=== PATIENT | male | born 2000 | race Caucasian/White ===

== ENCOUNTER 2020-08-06 10:44 | Emergency (ER) | payer MEDICAID, SELFPAY ==
[2020-08-06 11:03] VITALS: BP 104/57; PULSE 67; RESP 14; TEMP 36.7; O2SAT 98
[2020-08-06] MEDS: Lidocaine HCl 1 % MPF 5 ML VIAL SUBCUT ×2 (11:38→11:39)
--- NOTE | 2020-08-06 11:51 | ED.SKABFB ---
HPI - Skin/Abscess/Foreign Bdy General Chief complaint: Ear Problems Stated complaint: fb in ear lobe Time Seen by Provider: 08/06/20 11:24 History of Present Illness HPI narrative: patient complains of of part of an earring that stuck in the earlobe of his left ear and is hurting a little it has been stuck there for several days and the pain is mild, no prior tracing Related Data Allergies Allergy/AdvReac Type Severity Reaction Status Date / Time No Known Allergies Allergy Unverified 05/18/20 16:56 [No Known Allergies*] Review of Systems Review of Systems: no fever no chills no redness no swelling, no other skin rash, no discharge from the area [facility] Past Medical History Attestation statement: The following information was validated with the patient. [facility] Narrative: patient confirms he is up-to-date on tetanus immunization Source: nursing notes reviewed Medical History (Updated 08/06/20 @ 12:07 by GHAZALA Flores) Peptic ulcer Social History Social History Advance Directives: No Advance Directives Information Provided: No Physical Exam Vital Signs: Vital Signs: Last Vital Signs Temp 98.0 F 08/06/20 11:03 Pulse 67 08/06/20 11:03 Resp 14 08/06/20 11:03 BP 104/57 L 08/06/20 11:03 Pulse Ox 98 08/06/20 11:03 Body Mass Index 20.0 patient is A&O x3, comfortable no acute distress the exam the left ear has a palpable foreign body consistent with the hearing piece in the earlobe, there is no surrounding erythema not red not warm not fluctuant no discharge from wound Right ear lobe had no palpable foreign body was not red or warm and the ear canal was normal as was the tympanic membranes Neck is supple Respiratory no distress Extremities for range of motion x4 Skin no rash Course Course Course Narrative: Procedure note the left ear is scrubbed with Betadine Anesthesia is 4 cc of 1% lidocaine without epi Of 0.5 cm incision is made in the back of the earlobe If the piece of the earring was removed with a forceps To 5.0 nylon sutures were placed, bleeding was controlled Discharge Plan Discharge Clinical Impression: Foreign body (FB) in soft tissue Patient Disposition: Home, Self-Care Additional Instructions: the piece of earring was removed, no sign of any infection now Two stitches were placed and need to be removed in 5-7 days so follow with primary care doctor for suture removal or return to the ER in 5-7 days Return any time for redness swelling any sign of infection Stand Alone Forms: Work/School Release Interventions: ED Discharge Assessment Last Done: 08/06/20 12:32 Discharge Date/Time: 08/06/20 12:33
== END 2020-08-06 12:33 | disposition home or self-care (01) ==
PROVIDERS: Emergency Provider Internal Medicine
DX: T16.2XXA Foreign body in left ear, initial encounter (principal); H92.02 Otalgia, left ear; Y28.9XXA Contact with unspecified sharp object, undetermined intent, initial encounter; Y93.9 Activity, unspecified; Y92.9 Unspecified place or not applicable; Y99.9 Unspecified external cause status
CPT/HCPCS: 69200; 99283; 99284

== ENCOUNTER 2020-08-19 13:47 | Emergency (ER) | payer MEDICAID, SELFPAY ==
[2020-08-19 14:03] VITALS: BP 103/56; PULSE 70; RESP 16; TEMP 36.7; O2SAT 99; BMI 19.8
--- NOTE | 2020-08-19 14:22 | ED.SKABFB ---
HPI - Skin/Abscess/Foreign Bdy General Chief complaint: Skin/Abscess/Foreign Body Stated complaint: suture removal Time Seen by Provider: 08/19/20 14:21 Source: patient Mode of arrival: ambulatory Limitations: no limitations History of Present Illness HPI narrative: States here about 7 days ago for left ear laceration after his hearing got stuck and was repaired with 2 stitches. States no complaints here to have stitches removed as instructed. Treatments prior to arrival: none Related Data Allergies Allergy/AdvReac Type Severity Reaction Status Date / Time No Known Allergies Allergy Unverified 05/18/20 16:56 [No Known Allergies*] Review of Systems Review of Systems: Constitutional: No Weight loss, No Fever, No Chills, No Night Sweats, No Fatigue, No Malaise ENT/Mouth: No Hearing loss, No Ear Pain, No Nasal Congestion, No Sinus Pain, No Hoarseness, No sore throat, No Rhinorrhea, No Swallowing Difficulty Eyes: No Eye Pain, No Swelling, No Redness, No Foreign Body, No Discharge, No Vision Changes Cardiovascular: No Chest Pain, No SOB, No Dyspnea on Exertion Respiratory: No Cough, No Sputum Musculoskeletal: No joint pain, No Myalgias, No Joint Swelling Skin: No Skin Lesions, No rash Neuro: No Weakness, No Numbness, No Paresthesias Psych: No Social Issues Heme/Lymph: No Bruising, No Bleeding,No Lymphadenopathy Endocrine: No Polyuria, No Polydipsia, No Temperature Intolerance Yes all other systems are reviewed and are negative [facility] Past Medical History Medical History (Updated 08/19/20 @ 14:25 by Reji Romero NP) Peptic ulcer Social History Social History Advance Directives: No Advance Directives Information Provided: Yes Physical Exam Vital Signs: Vital Signs: Last Vital Signs Temp 98.0 F 08/19/20 14:03 Pulse 70 08/19/20 14:03 Resp 16 08/19/20 14:03 BP 103/56 L 08/19/20 14:03 Pulse Ox 99 08/19/20 14:03 Body Mass Index 19.8 Reviewed Const: General: cooperative and healthy appearing; No acute distress or intoxicated appearing Nutritional Appearance: average body habitus Orientation/consciousness: patient oriented x3 HENMT: Head: Yes normal to inspection Ears: hearing grossly normal bilaterally and other (Left posterior ear lobe there is 2 stitches intact. No erythema, swelling) Neck: Neck: Yes normal visual inspection and No tender Thyroid: Thyroid normal Chest: Chest palpation & inspection: normal inspection of the chest Resp: Effort & Inspection: normal respiratory effort Cardio: Jugular venous distension: no JVD GI: Inspection: Yes normal to inspection Percussion: Yes normal to percussion Auscultation: normal bowel sounds Neuro: General: patient oriented x3 Extrem: General: Yes normal to inspection Procedures Procedure Narrative Procedure Narrative: Left posterior lobe there are 2 stitches intact. Site closed, no dehiscence. No induration, erythema, swelling. Two stitches removed after prep with alcohol wipe. Removed fully intact. No erythema, swelling, discharge or to palpation. Discharge Plan Discharge Clinical Impression: Encounter for removal of sutures Patient Disposition: Home, Self-Care Instructions: Stitches Removal (ED) Additional Instructions: Today had 2 stitches from the posterior left ear lobe removed. Site appears to be well-healed Keep site clean and dry Return if any concerns or worsening symptoms Otherwise follow-up as planned Thank you Referrals: [facility] [Primary Care Provider] - 1 week (As needed)
== END 2020-08-19 14:35 | disposition home or self-care (01) ==
PROVIDERS: Emergency Provider Emergency Medicine
DX: Z48.02 Encounter for removal of sutures (principal)
CPT/HCPCS: 99283

== ENCOUNTER 2020-12-19 03:37 | Emergency (ER) | payer MEDICAID, SELFPAY ==
[2020-12-19 04:58] VITALS: BP 97/52; PULSE 76; RESP 16; TEMP 36.6; O2SAT 100; BMI 22.4
--- NOTE | 2020-12-19 05:10 | ED_ITS ---
HPI - Abdominal Pain General Chief Complaint: Abdominal Pain Stated Complaint: Abd pain Time Seen by Provider: 12/19/20 05:10 Source: patient Mode of arrival: ambulatory Limitations: no limitations History of Present Illness HPI narrative: Patient history of chronic gastritis used to be on ranitidine not taking anymore had endoscopy 2 years ago which showed peptic ulcer without any bleeding patient does smoke drinks alcohol and smokes marijuana feels better after taking hot shower complaining of diffuse abdominal pain with nausea slight loose bowels for last few days. Pain is mostly in epigastric area feel bloating this all over the abdomen no melena , no blood in the stool pain does get worse after eating food patient not on any NSAID MD elicited complaint: abdominal pain Pertinent past history: gastritis Related Data Previous Rx's Medication Instructions Recorded pantoprazole [Protonix] 40 mg PO DAILY #30 tab 12/19/20 sucralfate 1 g PO TID #90 tab 12/19/20 Allergies Allergy/AdvReac Type Severity Reaction Status Date / Time No Known Allergies Allergy Unverified 05/18/20 16:56 [No Known Allergies*] Review of Systems Review of Systems Constitutional : No Weight loss, No Fever, No Chills ENT/Mouth : No sore throat, No Rhinorrhea Eyes: No Eye Pain, No Swelling Cardiovascular : No Chest Pain, no palpitations Respiratory : No Cough, No Sputum, no shortness of breath Gastrointestinal : no Nausea, No Vomiting, + Diarrhea, + abdominal Pain, no black stools Genitourinary : No Dysuria, No Urinary Frequency Musculoskeletal : No joint pain, No Myalgias, No Joint Swelling Skin : No Skin Lesions, No rash Neuro : No Weakness, No Numbness, No Dizziness, No Headache Psych : No Anxiety/Panic, No Depression Heme/Lymph: No Bruising, No Lymphadenopathy Endocrine : No Polyuria, No Polydipsia All other systems reviewed and are negative Physical Exam Vital Signs: Vital Signs: Last Vital Signs Temp 97.9 F 12/19/20 04:58 Pulse 76 12/19/20 04:58 Resp 16 12/19/20 04:58 BP 97/52 L 12/19/20 04:58 Pulse Ox 100 12/19/20 04:58 Body Mass Index 22.4 Appearance: Alert. Oriented X3. No acute distress. Eyes: Pupils equal, round and reactive to light. ENT: Pharynx normal. Neck: Normal inspection. Neck supple. CVS: Normal heart rate and rhythm. Pulses normal. Respiratory: No respiratory distress. Breath sounds normal. Abdomen: Soft , mild epigastric tenderness no rebound tenderness or guarding. Bowel sounds are present, no mass palpable, no CVA tenderness Skin: Skin warm and dry. Normal skin color. Normal skin turgor. Extremities: No lower extremity edema. Neuro: Oriented X 3. No motor deficit. No sensory deficit. MDM - Abdominal Pain MDM Narrative Medical decision making narrative: Patient with chronic gastritis cannabis abuse comes with epigastric pain. 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
[2020-12-19] MEDS: Omeprazole 40 MG CAPSULE.DR PO (05:55)
[2020-12-19] MEDS: Magnesium Hydrox/Alum Hydrox 30 ML ORAL.SUSP PO (05:55)
== END 2020-12-19 06:02 | disposition home or self-care (01) ==
PROVIDERS: Emergency Provider Internal Medicine
DX: K29.50 Unspecified chronic gastritis without bleeding (principal)
CPT/HCPCS: 99283

== ENCOUNTER 2021-02-28 09:50 | Emergency (ER) | payer MEDICAID, SELFPAY ==
--- NOTE | ~2021-02-28 | CT_ITS ---
EXAMINATION: CT ABDOMEN AND PELVIS WITHOUT CONTRAST CLINICAL INFORMATION: Low back pain. Hematuria. COMPARISON: Previous renal ultrasound April [address] of the abdomen and pelvis September 2019 TECHNIQUE: Multidetector volumetric imaging was performed from the superior aspect of the liver through the pubic symphysis. Sagittal and coronal reformatted images were obtained on the technologist's workstation. This CT examination was performed using dose optimization techniques as appropriate, variously including the following: *Automated exposure control *Adjustment of mA and/or kV according to patient size (this includes techniques or standardized protocols for targeted exams where dose is matched to indication/reason for exam; i.e. extremities or head) *Use of iterative reconstruction technique DLP: 382 mGy-cm FINDINGS: LUNG BASES: The visualized lung bases are unremarkable. LIVER, GALLBLADDER, AND BILIARY TREE: The liver is normal in size, shape, and attenuation. No focal hepatic lesion or biliary ductal dilatation is present. The gallbladder is unremarkable with no evidence of radiopaque gallstones, gallbladder wall thickening, or obvious pericholecystic inflammatory changes. PANCREAS: Unremarkable. SPLEEN: Unremarkable. ADRENAL GLANDS: Unremarkable. KIDNEYS AND URETERS: There is a small 2 mm stone in the lower pole right kidney. The kidneys are otherwise unremarkable. No ureteral dilatation or ureteral stone is seen. BLADDER: Unremarkable. GASTROINTESTINAL TRACT: There is diverticulosis of the colon. The small and large bowel are otherwise unremarkable. The appendix is unremarkable. ABDOMINAL WALL: No significant hernia is appreciated. LYMPH NODES: Normal. VASCULAR: Unremarkable. PELVIC VISCERA: Unremarkable. OSSEOUS STRUCTURES: Unremarkable. CT/CT abdomen pelvis wo con IMPRESSION: Small right renal stone. No hydronephrosis. Diverticulosis of the colon. No evidence of diverticulitis.
[2021-02-28 11:03] VITALS: BP 91/57; PULSE 54; RESP 16; TEMP 36.6; O2SAT 98; BMI 19.6
[2021-02-28 11:17] LABS: Appearance Urine CLOUDY; Color Urine BROWN; Glucose Urine UA NEG (NEG); Leukocyte Esterase Urine NEG (NEG); Nitrite Urine NEG (NEG); Specific Gravity - Urine 1.025 (1.005-1.025); Urine Blood 3+ (NEG); Urine Ketones NEG (NEG); Urine Protein 2+ MG/DL (NEG-TRACE)
[2021-02-28 11:21] LABS: Mucus Urine TRACE /LPF; RBC Urine TNTC /HPF (0); Squamous Epithelial Cell Urine TRACE /LPF; WBC Urine 0 /HPF (0-4)
[2021-02-28 11:23] LABS: Calcium Oxalate Crystals Urine 1+ /LPF
--- NOTE | 2021-02-28 12:20 | ED_ITS ---
HPI - Male Genitourinary General Chief complaint: Urogenital-Male Stated complaint: blood in urine Time Seen by Provider: 02/28/21 12:05 Source: patient Mode of arrival: ambulatory Limitations: no limitations History of Present Illness HPI Narrative: 20 y/o male with history of peptic ulcer disease who presents to the ER with acute onset of gross hematuria that started this morning. He reports increased urgency and frequency but denies dsyuria, fever, chills. He had some upset stomach last night and nausea but denies abdominal pain or vomiting. He has never had hematuria before. He denies trauma, no testicular or penile pain. Denies concern for STI. He has had intermittent right lower back pain when he wakes up in the morning but no flank pain. MD Complaint: other (hematuria) Onset (ago): hour(s) Duration: intermittent Severity: moderate Associated symptoms: Reports blood in urine Related Data Sexually active: No Previous Rx's Medication Instructions Recorded pantoprazole [Protonix] 40 mg PO DAILY #30 tab 12/19/20 sucralfate 1 g PO TID #90 tab 12/19/20 nitrofurantoin monohyd/m-cryst 100 mg PO Q12H 7 Days #14 cap 02/28/21 [Macrobid] Allergies Allergy/AdvReac Type Severity Reaction Status Date / Time No Known Allergies Allergy Unverified 05/18/20 16:56 [No Known Allergies*] Review of Systems Review of Systems: Constitutional: No Fever, No Chills ENT/Mouth: No sore throat, No Rhinorrhea, No Swallowing Difficulty Eyes: No Eye Pain, No Swelling, No Redness Cardiovascular: No Chest Pain, No SOB, No Orthopnea, No Edema Respiratory: No Cough, No Sputum, No Wheezing, No dyspnea Gastrointestinal: No Nausea, No Vomiting, No Diarrhea, No abdominal Pain, No Hematochezia, No Melena Genitourinary: No Dysuria, + Urinary Frequency, + Hematuria Musculoskeletal: No joint pain, No Myalgias Skin: No Skin Lesions, No rash Neuro: No Weakness, No Numbness, No Dizziness, No Headache Psych: No Anxiety/Panic, No Depression Heme/Lymph: No Bruising, No Lymphadenopathy Endocrine: No Polyuria, No Polydipsia PMFSH Past Medical History Attestation statement: The following information was validated with the patient. Medical History Peptic ulcer Social History Social History Advance Directives: Yes Advance Directives Information Provided: Yes Advance Directives on File: No Physical Exam Vital Signs: Vital Signs: Last Vital Signs Temp 98 F 02/28/21 11:03 Pulse 63 02/28/21 15:53 Resp 16 02/28/21 15:53 BP 105/53 L 02/28/21 15:53 Pulse Ox 98 02/28/21 11:03 Body Mass Index 19.6 Appearance: Alert. Oriented X3. No acute distress. Eyes: Pupils equal, round and reactive to light. ENT: Pharynx normal. Neck: Normal inspection. Neck supple. CVS: Normal heart rate and rhythm. Pulses normal. Respiratory: No respiratory distress. Breath sounds normal. Abdomen: Soft and nontender. +BS x4. : normal appearing genitalia, no lesions, no scrotal tenderness Skin: Skin warm and dry. Normal skin color. Normal skin turgor. No rashes. Extremities: No lower extremity edema. Neuro: Oriented X 3. No motor deficit. No sensory deficit. Course Course Course Narrative: 20 y/o male presenting with acute onset of hematuria today with recent lower back pain that improves with urination. No N/V/D or fevers. Will get UA, labs and CT scan for further evaluation. Reevaluation(s) Reevaluation #1: UA with blood and protein, no LE or gross infection. Normal renal function. He was given 2 L IVF with improvement in the hematuria, now clearing. No clots. Will treat for acute cystitis and have him f/u with Urology for further workup and management. Patient agrees with plan. Stable for d/c. MDM - Male Genitourinary Lab Data Result diagrams: 02/28/21 14:17 02/28/21 14:17 Labs: Lab Results 02/28/21 02/28/21 02/28/21 Range/Units 11:01 12:17 14:17 WBC 5.6 (4.8-10.8) X10*3/uL RBC 5.16 (4.60-5.80) X10*6/uL Hgb 16.3 (14.0-18.0) g/dl Hct 44.8 (42-52) % MCV 86.8 (80-98) fL MCH 31.6 (27.0-33.0) pg MCHC 36.4 H (31.0-36.0) g/dl RDW 12.2 (11.0-16.0) % Plt Count 250 (160-400) X10*3/uL MPV 9.4 (9.4-12.4) fL Immature Gran % (Auto) 0.2 (0.0-0.4) % Neut % (Auto) 52.2 (45-73) % Lymph % (Auto) 37.9 (20-40) % [place] % (Auto) 7.9 (2-11) % Eos % (Auto) 1.3 (0-4) % Baso % (Auto) 0.5 (0-2) % Lymph # (Auto) 2.1 (1.2-4.9) X10*3/uL [place] # (Auto) 0.4 (0.1-1.2) X10*3/uL Eos # (Auto) 0.1 (0.0-0.4) X10*3/uL Baso # (Auto) 0.0 (0.0-0.2) X10*3/uL Abs Immat Gran (auto) 0.01 (0.00-0.03) X10*3/uL Absolute Neuts (auto) 2.9 (2.0-8.3) X10*3/uL Absolute Nucleated RBC 0.000 (0.0-0.012) X10*3/uL Nucleated RBC % (auto) 0.0 (0.0-0.2) /100WBC Sodium (135-145) mmol/L Potassium (3.3-5.1) mmol/L Chloride (96-108) mmol/L Carbon Dioxide (22-29) mmol/L Anion Gap (12-20) BUN (9-16) mg/dL Creatinine (0.5-1.4) mg/dL Estim Creat Clear Calc Estimated GFR Random Glucose (60-115) mg/dL Calcium (8.4-10.2) mg/dL Urine Color BROWN BROWN Urine Appearance CLOUDY CLOUDY Urine pH 6.0 7.0 (5.0-8.0) Ur Specific [place] 1.025 1.025 (1.005-1.025) Urine Protein 2+ H 2+ H (NEG-TRACE) MG/DL Urine Glucose (UA) NEG NEG (NEG) MG/DL Urine Ketones NEG 5 (NEG) MG/DL Urine Blood 3+ H 3+ H (NEG) Urine Nitrite NEG NEG (NEG) Ur Leukocyte Esterase NEG NEG (NEG) Urine RBC TNTC H TNTC H (0) /HPF Urine WBC 0 0-2 (0-4) /HPF Ur Squamous Epith Cells TRACE NONE /LPF Calcium Oxalate Crystal 1+ /LPF Urine Bacteria NONE NONE /LPF Urine Mucus TRACE 2+ /LPF 02/28/21 Range/Units 14:17 WBC (4.8-10.8) X10*3/uL RBC (4.60-5.80) X10*6/uL Hgb (14.0-18.0) g/dl Hct (42-52) % MCV (80-98) fL MCH (27.0-33.0) pg MCHC (31.0-36.0) g/dl RDW (11.0-16.0) % Plt Count (160-400) X10*3/uL MPV (9.4-12.4) fL Immature Gran % (Auto) (0.0-0.4) % Neut % (Auto) (45-73) % Lymph % (Auto) (20-40) % [place] % (Auto) (2-11) % Eos % (Auto) (0-4) % Baso % (Auto) (0-2) % Lymph # (Auto) (1.2-4.9) X10*3/uL [place] # (Auto) (0.1-1.2) X10*3/uL Eos # (Auto) (0.0-0.4) X10*3/uL Baso # (Auto) (0.0-0.2) X10*3/uL Abs Immat Gran (auto) (0.00-0.03) X10*3/uL Absolute Neuts (auto) (2.0-8.3) X10*3/uL Absolute Nucleated RBC (0.0-0.012) X10*3/uL Nucleated RBC % (auto) (0.0-0.2) /100WBC Sodium 141 (135-145) mmol/L Potassium 4.3 (3.3-5.1) mmol/L Chloride 108 (96-108) mmol/L Carbon Dioxide 24 (22-29) mmol/L Anion Gap 13 (12-20) BUN 10 (9-16) mg/dL Creatinine 0.79 (0.5-1.4) mg/dL Estim Creat Clear Calc 138.7 Estimated GFR > 60 Random Glucose 82 (60-115) mg/dL Calcium 9.7 (8.4-10.2) mg/dL Urine Color Urine Appearance Urine pH (5.0-8.0) Ur Specific [place] (1.005-1.025) Urine Protein (NEG-TRACE) MG/DL Urine Glucose (UA) (NEG) MG/DL Urine Ketones (NEG) MG/DL Urine Blood (NEG) Urine Nitrite (NEG) Ur Leukocyte Esterase (NEG) Urine RBC (0) /HPF Urine WBC (0-4) /HPF Ur Squamous Epith Cells /LPF Calcium Oxalate Crystal /LPF Urine Bacteria /LPF Urine Mucus /LPF Discharge Plan Discharge Clinical Impression: Cystitis Patient Disposition: Home, Self-Care Instructions: Hematuria (ED), Interstitial Cystitis (ED) Additional Instructions: Take the prescribed anitbiotic as directed. Increase your oral hydration, drink plenty of water Your lab workup was normal. Your CT scan showed 2 small kidney stones which are unlikely to be causing your bloody urine Recommend following up with Urology - name and number listed below If you develop new or worsening symptoms call 911 or come back to the ER for further evaluation. Prescriptions: New nitrofurantoin monohyd/m-cryst [Macrobid] 100 mg capsule 100 mg PO Q12H 7 Days Qty: 14 RF: 0 No Action pantoprazole [Protonix] 40 mg tablet,delayed release (DR/EC) 40 mg PO DAILY Qty: 30 RF: 0 sucralfate 1 gram tablet 1 g PO TID Qty: 90 RF: 0 Referrals: Brett Morrison MD [Physician] - 1 week (hematuria) Interventions: ED Discharge Assessment Last Done: 02/28/21 17:07 Discharge Date/Time: 02/28/21 17:08
[2021-02-28 12:34] LABS: Glucose Urine UA NEG (NEG); Leukocyte Esterase Urine NEG (NEG); Nitrite Urine NEG (NEG); Specific Gravity - Urine 1.025 (1.005-1.025); Urine Blood 3+ (NEG); Urine Ketones 5 MG/DL (NEG); Urine Protein 2+ MG/DL (NEG-TRACE)
[2021-02-28 12:35] LABS: Appearance Urine CLOUDY; Color Urine BROWN
[2021-02-28 12:42] LABS: Mucus Urine 2+ /LPF; RBC Urine TNTC /HPF (0); WBC Urine 0-2 /HPF (0-4)
[2021-02-28] MEDS: 0.9 % Sodium Chloride 1,000 ML 999 ML IVCONT ×2 (14:18→15:47)
[2021-02-28 14:21] LABS: MANUAL DIFF FLAG NO
[2021-02-28 14:23] LABS: Basophils Percent Auto 0.5 % (0-2); Eosinophils Absolute Auto 0.1 X10*3/uL (0.0-0.4); Eosinophils Percent Auto 1.3 % (0-4); Hematocrit 44.8 % (42-52); Hemoglobin 16.3 g/dl (14.0-18.0); Imm Gran Abs Auto 0.01 X10*3/uL (0.00-0.03); Imm Gran Pct Auto 0.2 % (0.0-0.4); Lymphocytes Absolute Auto 2.1 X10*3/uL (1.2-4.9); Lymphocytes Percent Auto 37.9 % (20-40); Mean Corpuscular HGB Conc 36.4 g/dl (31.0-36.0); Mean Corpuscular Hemoglobin 31.6 pg (27.0-33.0); Mean Corpuscular Volume 86.8 fL (80-98); Mean Platelet Volume 9.4 fL (9.4-12.4); Monocytes Absolute Auto 0.4 X10*3/uL (0.1-1.2); Monocytes Percent Auto 7.9 % (2-11); Neutrophils Absolute Auto 2.9 X10*3/uL (2.0-8.3); Neutrophils Percent Auto 52.2 % (45-73); Platelet Count 250 X10*3/uL (160-400); Red Blood Count 5.16 X10*6/uL (4.60-5.80); Red Cell Distribution Width 12.2 % (11.0-16.0); White Blood Count 5.6 X10*3/uL (4.8-10.8)
[2021-02-28 15:00] LABS: Anion Gap 13 (12-20); Blood Urea Nitrogen 10 mg/dL (9-16); Calcium 9.7 mg/dL (8.4-10.2); Carbon Dioxide 24 mmol/L (22-29); Chloride 108 mmol/L (96-108); Creatinine Clr Calc Pharmacy 138.7; Estimated Glomerular Filt Rate > 60; Glucose Random 82 mg/dL (60-115); Potassium 4.3 mmol/L (3.3-5.1); Sodium 141 mmol/L (135-145)
[2021-02-28 15:53] VITALS: BP 105/53; PULSE 63; RESP 16
--- NOTE | 2021-02-28 17:06 | PC.NURSE ---
PT REPORTS HEMATURIA RESOLVING, URINE APPEARANCE IMPROVING. DENIES ANY PAIN AT THIS TIME.
== END 2021-02-28 17:08 | disposition home or self-care (01) ==
PROVIDERS: Physician Assistant; Emergency Provider Emergency Medicine
DX: N30.91 Cystitis, unspecified with hematuria (principal)
CPT/HCPCS: 36415; 74176; 80048; 81001; 85025; 96360; 96361; 99284

== ENCOUNTER 2021-06-23 12:19 | Emergency (ER) | payer MEDICAID, SELFPAY ==
[2021-06-23 12:21] VITALS: BP 126/79; PULSE 51; RESP 17; TEMP 36.6; O2SAT 100; BMI 19.6
--- NOTE | 2021-06-23 12:29 | ED_ITS ---
HPI - Abdominal Pain General Chief Complaint: Abdominal Pain Stated Complaint: abd pain Time Seen by Provider: 06/23/21 12:28 Source: patient Mode of arrival: ambulatory Limitations: no limitations History of Present Illness HPI narrative: 20 y/o male with history of PUD, history of hematuria in the past who presents to the ER with upper middle abdominal pain for the last 1 week. He reports the pain is making it hard for him to eat. He tried a bland diet but has not been working. The pain is worse after he eats anything. He has some nausea but has not vomited. He feels like he is not his normal self, he is very anxious and stressed. He is not taking any medications for his known peptic ulcer disease. His GI doctor is no longer in practice. He reports his last endoscopy was about 1 year ago. A couple of weeks ago he was taking ibuprofen for the abdominal pain but remembered shortly after that this made ulcers worse. He denies any bloody or black bowel movements. He denies any alcohol intake, and only minimal caffeine intake. He has no chest pain or shortness of breath. No fever or chills. MD elicited complaint: abdominal pain Pertinent past history: other (Peptic ulcer disease) Onset (ago): week(s) Pain Consistency: constant Location: epigastric Severity: moderate Quality: dull and burning Radiation: none Migration to: no migration Exacerbating factors: eating Relieving factors: nothing Context: history of similar episodes Associated symptoms: nausea and anorexia Related Data Previous Rx's Medication Instructions Recorded pantoprazole 40 mg tablet,delayed 40 mg PO DAILY #30 tab 12/19/20 release (Protonix) sucralfate 1 gram tablet 1 g PO TID #90 tab 12/19/20 nitrofurantoin 100 mg PO Q12H 7 Days #14 cap 02/28/21 monohydrate/macrocrystals 100 mg capsule (Macrobid) pantoprazole 40 mg tablet,delayed 40 mg PO DAILY #30 tab 06/23/21 release (Protonix) sucralfate 1 gram tablet (Carafate) 1 g PO BID #60 tab 06/23/21 Allergies Allergy/AdvReac Type Severity Reaction Status Date / Time No Known Allergies Allergy Verified 06/23/21 12:21 [No Known Allergies*] Review of Systems Review of Systems Constitutional: No Fever, No Chills ENT/Mouth: No sore throat, No Rhinorrhea, No Swallowing Difficulty Cardiovascular: No Chest Pain, No SOB Gastrointestinal: + Nausea, No Vomiting, No Diarrhea, + abdominal Pain, No Hematochezia, No Melena Genitourinary: No Dysuria, No Urinary Frequency, No Hematuria Musculoskeletal: No joint pain, No Myalgias Skin: No Skin Lesions, No rash Neuro: No Weakness, No Numbness, No Dizziness, + Headache Psych: + Anxiety/Panic, No Depression Heme/Lymph: No Bruising, No Lymphadenopathy Endocrine: No Polyuria, No Polydipsia Physical Exam Vital Signs: Vital Signs: Last Vital Signs Temp 97.9 F 06/23/21 12:21 Pulse 51 06/23/21 12:21 Resp 17 06/23/21 12:21 BP 126/79 06/23/21 12:21 Pulse Ox 100 06/23/21 12:21 Body Mass Index 19.6 Course Course Course Narrative: 20-year-old male with known peptic ulcer disease, confirmed by endoscopy about 1 year ago presents to the ER with epigastric abdominal pain, worse after eating. He has not been on any medications for his peptic ulcers. He reports his GI doctor is no longer in practice. He has had no nausea, vomiting, diarrhea. He has some epigastric tenderness on exam. He is anxious and stressed. Suspect his pain is due to her current peptic ulcer disease, however will check some lab workup to rule out biliary etiology or pancreatitis. Will give IV fluids and GI cocktail along with Protonix and re-evaluate. Reevaluation(s) Reevaluation #1: Lab workup showing only mild elevation in total and direct bilirubins, the rest of the LFTs are normal. Lipase is normal. He symptomatic lead feels improved after the GI cocktail. He is stable for discharge home with treatment of PUD, with Protonix and Carafate. Will give him referral for GI with Dr. Wilson. He was also encouraged follow-up with his primary care doctor for management of ongoing anxiety and stress. Patient's father also expressed concern about this and it could be contributing to his worsening ulcers. Stable for discharge home. MDM - Abdominal Pain Lab Data Result diagrams: 06/23/21 13:10 06/23/21 13:10 Labs: Lab Results 06/23/21 06/23/21 Range/Units 13:10 13:10 WBC 3.9 L (4.8-10.8) X10*3/uL RBC 4.99 (4.60-5.80) X10*6/uL Hgb 15.6 (14.0-18.0) g/dl Hct 43.4 (42-52) % MCV 87.0 (80-98) fL MCH 31.3 (27.0-33.0) pg MCHC 35.9 (31.0-36.0) g/dl RDW 12.5 (11.0-16.0) % Plt Count 241 (160-400) X10*3/uL MPV 10.2 (9.4-12.4) fL Immature Gran % (Auto) 0.3 (0.0-0.4) % Neut % (Auto) 53.8 (45-73) % Lymph % (Auto) 32.4 (20-40) % Marshall % (Auto) 11.1 H (2-11) % Eos % (Auto) 1.6 (0-4) % Baso % (Auto) 0.8 (0-2) % Lymph # (Auto) 1.3 (1.2-4.9) X10*3/uL Marshall # (Auto) 0.4 (0.1-1.2) X10*3/uL Eos # (Auto) 0.1 (0.0-0.4) X10*3/uL Baso # (Auto) 0.0 (0.0-0.2) X10*3/uL Abs Immat Gran (auto) 0.01 (0.00-0.03) X10*3/uL Absolute Neuts (auto) 2.1 (2.0-8.3) X10*3/uL Absolute Nucleated RBC 0.000 (0.0-0.012) X10*3/uL Nucleated RBC % (auto) 0.0 (0.0-0.2) /100WBC Sodium 138 (135-145) mmol/L Potassium 4.1 (3.3-5.1) mmol/L Chloride 106 (96-108) mmol/L Carbon Dioxide 23 (22-29) mmol/L Anion Gap 13 (12-20) BUN 13 (9-16) mg/dL Creatinine 0.86 (0.5-1.4) mg/dL Estim Creat Clear Calc 127.4 Estimated GFR > 60 Random Glucose 79 (60-115) mg/dL Calcium 9.6 (8.4-10.2) mg/dL Magnesium 2.2 (1.6-2.6) mg/dL Total Bilirubin 2.1 H (0.0-1.0) mg/dL Direct Bilirubin 0.7 H (0.0-0.5) mg/dL AST 14 (5-37) U/L ALT 9 (0-40) U/L Alkaline Phosphatase 63 (39-117) U/L Total Protein 7.2 (6.5-8.0) g/dL Albumin 4.7 (3.5-5.0) g/dL Lipase 9 (8-78) U/L Critical Care Time Critical Care Time Critical Care Time: No Discharge Plan Discharge Clinical Impression: Peptic ulcer disease Patient Disposition: Home, Self-Care Instructions: Peptic Ulcer (ED), Diet for Stomach Ulcers and Gastritis (ED) Additional Instructions: Your abdominal pain is most likely due to untreated peptic ulcer disease. Recommend taking the prescribed medications as directed. The pain will get better with time and with the medications. Follow-up with the GI doctor for further evaluation and possible repeat endoscopy. Follow the diet provided, avoid any spicy or acidic food. Avoid alcohol. Avoid any anti-inflammatory medications such as Aleve, Motrin, ibuprofen, Advil. Follow-up with your primary care provider as well. Recommend getting referrals for therapy for anxiety and stress. Prescriptions: New pantoprazole [Protonix] 40 mg tablet,delayed release (DR/EC) 40 mg PO DAILY Qty: 30 RF: 0 sucralfate [Carafate] 1 gram tablet 1 g PO BID Qty: 60 RF: 0 No Action pantoprazole [Protonix] 40 mg tablet,delayed release (DR/EC) 40 mg PO DAILY Qty: 30 RF: 0 sucralfate 1 gram tablet 1 g PO TID Qty: 90 RF: 0 nitrofurantoin monohyd/m-cryst [Macrobid] 100 mg capsule 100 mg PO Q12H 7 Days Qty: 14 RF: 0 Referrals: Piotr Wilson [Physician] - 1 week (PUD) Stand Alone Forms: Work/School Release [facility] Past Medical History Medical History Peptic ulcer Social History Social History Advance Directives: No
[2021-06-23 13:15] LABS: MANUAL DIFF FLAG NO
[2021-06-23] MEDS: Magnesium Hydrox/Alum Hydrox 30 ML ORAL.SUSP PO (13:19)
[2021-06-23] MEDS: Omeprazole 40 MG CAPSULE.DR PO (13:19)
[2021-06-23] MEDS: PHENobarb/Hyoscy/Atropine/Scop 10 ML ELIXIR PO (13:19)
[2021-06-23] MEDS: Lidocaine HCl Viscous 2 % 15 ML SOLUTION MUCOUS MEM (13:19)
[2021-06-23] MEDS: 0.9 % Sodium Chloride 1,000 ML 999 ML IVCONT (13:20)
[2021-06-23 13:22] LABS: Basophils Percent Auto 0.8 % (0-2); Eosinophils Absolute Auto 0.1 X10*3/uL (0.0-0.4); Eosinophils Percent Auto 1.6 % (0-4); Hematocrit 43.4 % (42-52); Hemoglobin 15.6 g/dl (14.0-18.0); Imm Gran Abs Auto 0.01 X10*3/uL (0.00-0.03); Imm Gran Pct Auto 0.3 % (0.0-0.4); Lymphocytes Absolute Auto 1.3 X10*3/uL (1.2-4.9); Lymphocytes Percent Auto 32.4 % (20-40); Mean Corpuscular HGB Conc 35.9 g/dl (31.0-36.0); Mean Corpuscular Hemoglobin 31.3 pg (27.0-33.0); Mean Platelet Volume 10.2 fL (9.4-12.4); Monocytes Absolute Auto 0.4 X10*3/uL (0.1-1.2); Monocytes Percent Auto 11.1 % (2-11); Neutrophils Absolute Auto 2.1 X10*3/uL (2.0-8.3); Neutrophils Percent Auto 53.8 % (45-73); Platelet Count 241 X10*3/uL (160-400); Red Blood Count 4.99 X10*6/uL (4.60-5.80); Red Cell Distribution Width 12.5 % (11.0-16.0); White Blood Count 3.9 X10*3/uL (4.8-10.8)
[2021-06-23 13:40] LABS: Alanine Aminotransferase 9 U/L (0-40); Albumin Level 4.7 g/dL (3.5-5.0); Alkaline Phosphatase 63 U/L (39-117); Anion Gap 13 (12-20); Aspartate Amino Transferase 14 U/L (5-37); Bilirubin Direct 0.7 mg/dL (0.0-0.5); Bilirubin Total 2.1 mg/dL (0.0-1.0); Blood Urea Nitrogen 13 mg/dL (9-16); Calcium 9.6 mg/dL (8.4-10.2); Carbon Dioxide 23 mmol/L (22-29); Chloride 106 mmol/L (96-108); Creatinine Clr Calc Pharmacy 127.4; Estimated Glomerular Filt Rate > 60; Glucose Random 79 mg/dL (60-115); Lipase 9 U/L (8-78); Magnesium 2.2 mg/dL (1.6-2.6); Potassium 4.1 mmol/L (3.3-5.1); Sodium 138 mmol/L (135-145); Total Protein 7.2 g/dL (6.5-8.0)
== END 2021-06-23 14:23 | disposition home or self-care (01) ==
PROVIDERS: Physician Assistant; Emergency Provider Emergency Medicine
DX: K27.9 Peptic ulcer, site unspecified, unspecified as acute or chronic, without hemorrhage or perforation (principal); R10.13 Epigastric pain; R11.2 Nausea with vomiting, unspecified; Z79.899 Other long term (current) drug therapy
CPT/HCPCS: 36415; 80048; 80076; 83690; 83735; 85025; 96360; 99283; 99284

== ENCOUNTER 2021-09-18 22:00 | Emergency (ER) | payer MEDICAID, SELFPAY ==
[2021-09-18 22:31] VITALS: BP 122/71; PULSE 66; RESP 16; TEMP 36.6; O2SAT 99; BMI 19.0
== END 2021-09-18 23:37 | disposition left against medical advice (07) ==
PROVIDERS: Emergency Provider Emergency Medicine
DX: U07.1 COVID-19 (principal); R07.89 Other chest pain
CPT/HCPCS: 99281; 99282

== ENCOUNTER 2021-11-20 12:25 | Emergency (ER) | payer MEDICAID, SELFPAY ==
--- NOTE | ~2021-11-20 | XR_ITS ---
EXAMINATION: XR CALCANEUS, LEFT CLINICAL INFORMATION: Trauma COMPARISON: Left foot x-ray from earlier the same day TECHNIQUE: Lateral and axial views of the left calcaneus were obtained. FINDINGS: The bones and soft tissues are normal. No fracture. Alignment is anatomic. Joint spaces are maintained. No enthesopathic spurs are evident at the calcaneus. XR/XR calcaneus LT min 2V IMPRESSION: Normal left calcaneus.
--- NOTE | ~2021-11-20 | XR_ITS ---
EXAMINATION: XR FOOT, LEFT CLINICAL INFORMATION: Injury heel with heavy object COMPARISON: None TECHNIQUE: AP, lateral, and oblique views of the left foot. FINDINGS: The bones and soft tissues are normal. No fracture. Alignment is anatomic. Joint spaces are maintained. XR/XR foot LT min 3V IMPRESSION: Normal left foot.
[2021-11-20 12:41] VITALS: BP 112/57; PULSE 58; RESP 19; TEMP 36.6; O2SAT 98; BMI 19.1
--- NOTE | 2021-11-20 15:03 | ED_ITS ---
HPI - Extremity Injury (Lower) General Chief Complaint: Extremity Injury, Lower Stated Complaint: Foot pain-work inj Time Seen by Provider: 11/20/21 13:38 Source: patient Mode of arrival: ambulatory History of Present Illness HPI Narrative: 21-year-old male no significant past medical history presenting to the ED c/o left heel injury/pain s/p 60+ pound cart running into heel at work in [employer] today. Reports associated numbness and pain with ambulation. Denies injury to the area, weakness, fever MD complaint: foot injury Related Data Previous Rx's Medication Instructions Recorded pantoprazole 40 mg tablet,delayed 40 mg PO DAILY #30 tab 12/19/20 release (Protonix) sucralfate 1 gram tablet 1 g PO TID #90 tab 12/19/20 nitrofurantoin 100 mg PO Q12H 7 Days #14 cap 02/28/21 monohydrate/macrocrystals 100 mg capsule (Macrobid) pantoprazole 40 mg tablet,delayed 40 mg PO DAILY #30 tab 06/23/21 release (Protonix) sucralfate 1 gram tablet (Carafate) 1 g PO BID #60 tab 06/23/21 Allergies Allergy/AdvReac Type Severity Reaction Status Date / Time No Known Allergies Allergy Verified 06/23/21 12:21 [No Known Allergies*] Review of Systems Review of Systems: Constitutional: No Fever, No Chills ENT/Mouth: No Ear Pain, No Nasal Congestion, No sore throat, No Rhinorrhea, No Swallowing Difficulty Cardiovascular: No Chest Pain, No SOB Respiratory: No Cough, No Sputum Gastrointestinal: No Nausea, No Vomiting, No Diarrhea, No Constipation, No Abdominal pain Genitourinary: No Dysuria, No Flank Pain Musculoskeletal: + joint pain, No Myalgias, No Joint Swelling Skin: No Skin Lesions, No rash Neuro: No Weakness, + Numbness, + Paresthesias Yes all other systems are reviewed and are negative PMFSH Past Medical History Attestation statement: The following information was validated with the patient. Medical History Peptic ulcer Social History Social History Advance Directives: No Advance Directives Information Provided: No Physical Exam Vital Signs: Vital Signs: Last Vital Signs Temp 98 F 11/20/21 12:41 Pulse 58 11/20/21 12:41 Resp 19 11/20/21 12:41 BP 112/57 L 11/20/21 12:41 Pulse Ox 98 11/20/21 12:41 BMI result Body Mass Index 19.1 Const: General: cooperative, healthy appearing and no acute distress Orientation/consciousness: patient oriented x3 Limitations: no limitations HEENT: Head: Yes normal to inspection Ears: hearing grossly normal bilaterally General nose exam: Normal external nose present Face and sinus: Yes normal facial exam Eyes: General: appearance normal, both eyes and all related structures EOM: EOMs intact bilaterally Neck: Neck: Yes normal visual inspection and Yes no meningeal signs Resp: Effort & Inspection: normal respiratory effort and no respiratory distress Cardio: Rate: regular rate Peripheral pulses: dorsalis pedis present Skin: Rashes: no rashes Wounds: no wounds Neuro: Other: Left heel with noted tenderness to palpation, no deformity, no erythema/ecchymosis. Neurovascularly intact. No crepitus. Full range of motion intact to ankle and toes. Negative Adamson test Sensation intact to light touch however reportedly feels different to heel General: patient oriented x3, gait normal, tone normal, moves all extremities and no meningeal signs Extrem: General: Yes normal to inspection Course Course Course Narrative: XR foot LT min 3V IMPRESSION: Normal left foot. XR calcaneus LT min 2V IMPRESSION: Normal left calcaneus. >> Neri wrap applied for comfort/stability. Results discussed with patient including worrisome signs and symptoms and strict return precautions MDM - Extremity Injury (Lower) MDM Narrative Medical decision making narrative: 21-year-old male no significant past medical history presenting to the ED c/o left heel injury/pain s/p 60+ pound cart running into heel at work in [employer] today. On exam vital signs stable, NAD/nontoxic-appearing, physical exam as above. Concern for contusion vs fracture vs sprain. No evidence of Achilles tendon rupture Plan: X-rays Medical Records Attestation: I reviewed the patient's medical records. Lab Data Attestation: I reviewed the patient's lab results. Discharge Plan Discharge Clinical Impression: Heel pain Patient Disposition: Home, Self-Care Instructions: Arthralgia (ED) Additional Instructions: Your x-rays are unremarkable. Wear Neri wrap at home as needed for comfort and stability. Ice and elevate her foot. Take ibuprofen and Tylenol If pain becomes unbearable please follow-up with Podiatry Orthopedics as needed Follow-up with your doctor Prescriptions: No Action pantoprazole [Protonix] 40 mg tablet,delayed release (DR/EC) 40 mg PO DAILY Qty: 30 0RF sucralfate 1 gram tablet 1 g PO TID Qty: 90 0RF nitrofurantoin monohyd/m-cryst [Macrobid] 100 mg capsule 100 mg PO Q12H 7 Days Qty: 14 0RF Rx Instructions: must administer with a meal/food pantoprazole [Protonix] 40 mg tablet,delayed release (DR/EC) 40 mg PO DAILY Qty: 30 0RF sucralfate [Carafate] 1 gram tablet 1 g PO BID Qty: 60 0RF Referrals: [facility] [Primary Care Provider] - 2 days Gretchen Mcdowell PA-C [Physician [employer]ished [employer]] - 2 days Dane Nieves MD [Physician] - 1 week Stand Alone Forms: Work/School Release
== END 2021-11-20 15:22 | disposition home or self-care (01) ==
PROVIDERS: Emergency Provider Emergency Medicine Emergency Medical Services
DX: Z04.2 Encounter for examination and observation following work accident (principal); M79.672 Pain in left foot
CPT/HCPCS: 73630; 73650; 99283

== ENCOUNTER 2022-03-27 21:20 | Emergency (ER) | payer MEDICAID, SELFPAY ==
[2022-03-27 22:44] VITALS: BP 101/59; PULSE 53; RESP 18; TEMP 36.3; O2SAT 97; BMI 20.9
== END 2022-03-28 03:41 | disposition left against medical advice (07) ==
PROVIDERS: Emergency Provider Emergency Medicine
DX: Z04.2 Encounter for examination and observation following work accident (principal); H57.11 Ocular pain, right eye
CPT/HCPCS: 99281

== ENCOUNTER 2022-09-16 19:16 | Emergency (ER) | payer MEDICAID, SELFPAY ==
[2022-09-16 19:19] VITALS: BP 106/64; PULSE 73; RESP 16; TEMP 36.4; O2SAT 97; BMI 19.8
--- NOTE | 2022-09-16 19:23 | ED_ITS ---
HPI - General Adult General Chief complaint: General Medical <GHAZALA Jordan - Last Filed: 09/17/22 11:33> Stated complaint: sore throat <GHAZALA Jordan - Last Filed: 09/17/22 11:33> Time Seen by Provider: 09/16/22 20:38 <GHAZALA Jordan - Last Filed: 09/17/22 11:33> Source: patient <Lita Hope CNP - Last Filed: 09/16/22 21:26> Mode of arrival: ambulatory <Lita Hope CNP - Last Filed: 09/16/22 21:26> Limitations: no limitations <Lita Hope CNP - Last Filed: 09/16/22 21:26> History of Present Illness HPI narrative: Patient is a 22-year-old male who presents to the emergency department for evaluation of sore throat. Onset of symptoms was 4 days ago. Denies additional URI symptoms. He does state that his coworkers have been ill with similar symptoms. Denies fevers, chills, drooling, difficulty swallowing, cough, nasal congestion, chest pain, shortness of breath. <Lita Hope CNP - Last Filed: 09/16/22 21:26> Related Data Home medications: Previous Rx's Medication Instructions Recorded pantoprazole 40 mg tablet,delayed 40 mg PO DAILY #30 tabs 12/19/20 release (Protonix) sucralfate 1 gram tablet 1 g PO TID #90 tabs 12/19/20 nitrofurantoin 100 mg PO Q12H 7 days #14 caps 02/28/21 monohydrate/macrocrystals 100 mg capsule (Macrobid) pantoprazole 40 mg tablet,delayed 40 mg PO DAILY #30 tabs 06/23/21 release (Protonix) sucralfate 1 gram tablet (Carafate) 1 g PO BID #60 tabs 06/23/21 penicillin V potassium 500 mg 500 mg PO BID #10 tabs 09/16/22 tablet <GHAZALA Jordan - Last Filed: 09/17/22 11:33> Allergies/adverse reactions: Allergies Allergy/AdvReac Type Severity Reaction Status Date / Time No Known Allergies Allergy Verified 03/27/22 22:44 [No Known Allergies*] <GHAZALA Jordan - Last Filed: 09/17/22 11:33> Review of Systems Review of Systems: Constitutional: No fever. no chills. No weakness. no fatigue. ENT/ Mouth: No Ear Pain, no Nasal Congestion, positive sore throat, No Rhinorrhea, No Swallowing Difficulty Skin: No rash or itching. Cardiovascular: No chest pain. No palpitations. Respiratory: No shortness of breath. no cough. No sputum production. Gastrointestinal: No nausea. No vomiting. No diarrhea. No abdominal pain. Genitourinary: No burning micturition. No urinary frequency. Neurologic: No headache. No dizziness. No syncope. No numbness or tingling in the extremities. Musculoskeletal: No muscle pain. No back pain. No joint pain or stiffness. <Lita oHpe CNP - Last Filed: 09/16/22 21:26> Yes all other systems are reviewed and are negative <Lita Hope CNP - Last Filed: 09/16/22 21:26> [facility] Past Medical History Attestation statement: The following information was validated with the patient. <Lita Hope CNP - Last Filed: 09/16/22 21:26> Source: old records reviewed <Lita Hope CNP - Last Filed: 09/16/22 21:26> Medical History: Medical History Peptic ulcer <GHAZALA Jordan - Last Filed: 09/17/22 11:33> Social History Social History: Social History Advance Directives: No Advance Directives Information Provided: No <GHAZALA Jordan - Last Filed: 09/17/22 11:33> Physical Exam ED Vital Signs: Vital Signs - 24 hr 09/16/22 19:19 Temperature 97.5 F Pulse Rate 73 Respiratory Rate 16 Blood Pressure 106/64 Pulse Oximetry 97 Oxygen Delivery Method Room Air BMI result Body Mass Index 19.8 <GHAZALA Jordan Last Filed: 09/17/22 11:33> Vital Signs - 24 hr 09/16/22 19:19 Temperature 97.5 F Pulse Rate 73 Respiratory Rate 16 Blood Pressure 106/64 Pulse Oximetry 97 Oxygen Delivery Method Room Air BMI result Body Mass Index 19.8 <Lita Hope CNP - Last Filed: 09/16/22 21:26> Appearance: Alert.?Oriented to person, place and time. No acute distress.?Normal affect. Eyes: Pupils equal, round and reactive to light.? ENT: Pharynx erythematous with scant white exudates, no hypertrophy, uvula midline. No trismus. No drooling. Neck: Normal inspection.? Neck supple.?? CVS: Heart sounds normal. Normal heart rate and rhythm.? Pulses normal.?? Respiratory: No respiratory distress.? Lung sounds clear to auscultation bilat erally?? Abdomen: Soft and non-tender. Normoactive bowel sounds. Skin: Skin warm and dry.? Normal skin color.? Extremities: No lower extremity edema.? Neuro: Moves all extremities spontaneously. Sensation intact bilaterally. No focal neuro deficits. Ambulates with normal steady gait. <Lita Hope CNP - Last Filed: 09/16/22 21:26> Course Course Course Narrative: RME: 22 yold male presents to the ED for sore throat since thrusday. Patient states co-workers are sick. SARS and strep ordered <GHAZALA Jordan - Last Filed: 09/17/22 11:33> Medical Decision Making Medical Decision Making MDM Narrative: Patient is a 22-year-old male presents emergency department for evaluation of sore throat. Physical examination consistent with pharyngitis. Reviewed viral testing obtained from our mg, positive for RSV, in addition to positive strep testing. Discussed these findings with patient. He has been symptomatic less far for 4 days, discussed highly contagious nature of RSV. Patient provided with a return to work note, prescription for antibiotic to cover strep pharyngitis with sent. Physical examination not with peritonsillar abscess, low suspicion for retropharyngeal abscess. He is tolerating oral in take. Vitals stable. Stable for discharge. <Lita Hope CNP - Last Filed: 09/16/22 21:26> Differential Diagnosis Differential Diagnoses: The differential diagnosis associated with the presentation includes ( As noted in HPI) <Lita Hope CNP - Last Filed: 09/16/22 21:26> Lab Data MDM Lab Attestation statement: I reviewed the patient's lab results. <Lita Hope CNP - Last Filed: 09/16/22 21:26> Labs: Lab Results 09/16/22 09/16/22 Range/Units 19:35 19:35 Influenza Type A (PCR) NEGATIVE (Negative) Influenza Type B (PCR) NEGATIVE (Negative) RSV RNA Qual (PCR) POSITIVE A (Negative) SARS-CoV-2 RNA (RT-PCR) NEGATIVE (Negative) S. pyogenes GrpA FAUSTINO Positive A (Negative) <GHAZALA Jordan - Last Filed: 09/17/22 11:33> Lab Results 09/16/22 09/16/22 Range/Units 19:35 19:35 Influenza Type A (PCR) NEGATIVE (Negative) Influenza Type B (PCR) NEGATIVE (Negative) RSV RNA Qual (PCR) POSITIVE A (Negative) SARS-CoV-2 RNA (RT-PCR) NEGATIVE (Negative) S. pyogenes GrpA FAUSTINO Positive A (Negative) <Lita Hope CNP - Last Filed: 09/16/22 21:26> Prescription Management I considered prescription management with: Antibiotic ( sent to patient's pharmacy) <Lita Hope CNP - Last Filed: 09/16/22 21:26> Discharge Plan Discharge Clinical Impression: Respiratory syncytial virus (RSV), Acute streptococcal pharyngitis <GHAZALA Jordan Last Filed: 09/17/22 11:33> Patient Disposition: Home, Self-Care <GHAZALA Jordan Last Filed: 09/17/22 11:33> Instructions: Strep Throat (ED) <GHAZALA Jordan Last Filed: 09/17/22 11:33> Additional Instructions: Please complete the entire course of antibiotics as prescribed. You can take ibuprofen 200 mg, 3 tablets (600mg) every 6-8 hours as needed for pain, in addition to Tylenol 500 mg, 2 tablets (1,000mg) every 4-6 hours as needed for pain, but not to exceed 3 doses daily (3,000mg).? Return to emergency department any new or worsening symptoms or concerns. <GHAZALA Jordan - Last Filed: 09/17/22 11:33> Prescriptions: New penicillin V potassium 500 mg tablet 500 mg PO BID Qty: 10 0RF No Action pantoprazole [Protonix] 40 mg tablet,delayed release (DR/EC) 40 mg PO DAILY Qty: 30 0RF sucralfate 1 gram tablet 1 g PO TID Qty: 90 0RF nitrofurantoin monohyd/m-cryst [Macrobid] 100 mg capsule 100 mg PO Q12H 7 Days Qty: 14 0RF Rx Instructions: must administer with a meal/food pantoprazole [Protonix] 40 mg tablet,delayed release (DR/EC) 40 mg PO DAILY Qty: 30 0RF sucralfate [Carafate] 1 gram tablet 1 g PO BID Qty: 60 0RF <GHAZALA Jordan - Last Filed: 09/17/22 11:33> Referrals: Physician,None [Primary Care Provider] - <GHAZALA Jordan - Last Filed: 09/17/22 11:33> Stand Alone Forms: Work/School Release <GHAZALA Jordan - Last Filed: 09/17/22 11:33> Interventions: ED Discharge Assessment Last Done: 09/16/22 21:21 <GHAZALA Jordan - Last Filed: 09/17/22 11:33> Discharge Date/Time: 09/16/22 21:21 <GHAZALA Jordan - Last Filed: 09/17/22 11:33>
[2022-09-16 19:48] LABS: IDNOW Serial# 6674DD1D; Strep A Nucleic Acid Positive (Negative)
[2022-09-16 20:19] LABS: Influenza A PCR NEGATIVE (Negative); Influenza B PCR NEGATIVE (Negative); Resp Syncy Virus RNA Qual PCR POSITIVE (Negative); SARS COV2 PCR INHOUSE NEGATIVE (Negative)
== END 2022-09-16 21:21 | disposition home or self-care (01) ==
PROVIDERS: Physician Assistant; Emergency Provider Emergency Medicine Emergency Medical Services
DX: J02.0 Streptococcal pharyngitis (principal); B97.4 Respiratory syncytial virus as the cause of diseases classified elsewhere; Z20.822 Contact with and (suspected) exposure to COVID-19; Z20.828 Contact with and (suspected) exposure to other viral communicable diseases
CPT/HCPCS: 0241U; 87651; 99282; 99283

== ENCOUNTER 2022-09-30 01:01 | Emergency (ER) | payer MEDICAID, SELFPAY ==
--- NOTE | ~2022-09-30 | XR_ITS ---
EXAMINATION: XR CHEST CLINICAL INFORMATION: Rule out pneumonia COMPARISON: 11/02/2019 TECHNIQUE: Frontal view of the chest was obtained. FINDINGS: The lungs are clear with no focal consolidation. No evidence of pneumothorax, pulmonary edema, or pleural effusions. The cardiomediastinal silhouette is unremarkable. No acute osseous findings. XR/XR chest 1V IMPRESSION: No acute cardiopulmonary findings.
--- NOTE | 2022-09-30 01:12 | ED_ITS ---
HPI - URI/Sore Throat General Chief Complaint: General Medical Stated Complaint: flu like symptoms Time Seen by Provider: 09/30/22 01:09 Source: patient Mode of arrival: ambulatory Limitations: no limitations History of Present Illness HPI Narrative: Patient comes to the emergency room complaining of sore throat and cough. Patient was seen here approximately 2 weeks ago, diagnosed with RSV and streptococcal pharyngitis, patient was sent home with antibiotics. Patient states that he finished the entire course. Patient states that he continues coughing and the soreness in his throat it is getting worse. Denies fever chills Related Data Previous Rx's Medication Instructions Recorded pantoprazole 40 mg tablet,delayed 40 mg PO DAILY #30 tabs 12/19/20 release (Protonix) sucralfate 1 gram tablet 1 g PO TID #90 tabs 12/19/20 nitrofurantoin 100 mg PO Q12H 7 days #14 caps 02/28/21 monohydrate/macrocrystals 100 mg capsule (Macrobid) pantoprazole 40 mg tablet,delayed 40 mg PO DAILY #30 tabs 06/23/21 release (Protonix) sucralfate 1 gram tablet (Carafate) 1 g PO BID #60 tabs 06/23/21 penicillin V potassium 500 mg 500 mg PO BID #10 tabs 09/16/22 tablet benzocaine 10 % oral rinse 15 ml mucous membrane QID PRN 09/30/22 suspension mouth pain #60 mL Allergies Allergy/AdvReac Type Severity Reaction Status Date / Time No Known Allergies Allergy Verified 03/27/22 22:44 [No Known Allergies*] Review of Systems Review of Systems: Constitutional : No Weight loss, No Fever, No Chills, No Night Sweats, No Fatigue, No Malaise ENT/Mouth : No Hearing loss, No Ear Pain, No Nasal Congestion, No Sinus Pain, No Hoarseness, complaining of sore throat, No Rhinorrhea, No Swallowing Difficulty Eyes: No Eye Pain, No Swelling, No Redness, No Foreign Body, No Discharge, No Vision Changes Cardiovascular : No Chest Pain, No SOB, No Dyspnea on Exertion, No Orthopnea, No Edema, No Palpitations Respiratory : Complaining of ongoing dry Cough, No Sputum, No Wheezing, No Smoke Exposure, No Dyspnea Gastrointestinal : No Nausea, No Vomiting, No Diarrhea, No Constipation, No abdominal Pain, No Hematochezia, No Melena Genitourinary : no irregular bleeding, No Dysuria, No Urinary Frequency, No Hematuria, No Urinary Incontinence, No Urgency, No Flank Pain, No Urinary Flow Changes, No Hesitancy Musculoskeletal : No joint pain, No Myalgias, No Joint Swelling Skin : No Skin Lesions, No rash Neuro : No Weakness, No Numbness, No Paresthesias, No Loss of Consciousness, No Dizziness, No Headache Psych : No Anxiety/Panic, No Depression, No SI/HI/AH/VH, No Social Issues, Heme/Lymph: No Bruising, No Bleeding,No Lymphadenopathy Endocrine : No Polyuria, No Polydipsia, No Temperature Intolerance PMFSH Past Medical History Medical History Peptic ulcer Social History Social History Alcohol intake: never Smoked in Last 30 Days: Yes Use of substances other than those prescribed or required for medical reasons: Yes Substance Use Type: Marijuana Advance Directives: No Physical Exam Vital Signs: Vital Signs: Last Vital Signs Temp 98.3 F 09/30/22 01:13 Pulse 70 09/30/22 01:13 Resp 16 09/30/22 01:13 BP 117/67 09/30/22 01:13 Pulse Ox 96 09/30/22 01:13 O2 Del Method 09/30/22 01:13 BMI result Body Mass Index 19.8 Const: Other: Appearance: Alert. Oriented X3. No acute distress. Eyes: Pupils equal, round and reactive to light. ENT: Pharynx erythematous, no exudates Neck: Normal inspection. Neck supple. No lymph nodes noted. No crepitus CVS: Normal heart rate and rhythm. Pulses normal. Normal S1 and S2 Respiratory: No respiratory distress. Breath sounds normal. No Wheezing. No rales Abdomen: Soft and nontender. No rigidity. No distention. Skin: Skin warm and dry. Normal skin color. Normal skin turgor. Extremities: No lower extremity edema. No Lacerations. No Rash Neuro: Oriented X 3. No motor deficit. No sensory deficit. Moving all extremities. No slurred speech. CN 2 through 12 grossly intact Psych: calm, cooperative, normal affect Course Course Course Narrative: -patient serologies will be repeated. Patient has significantly erythematous oropharynx with no abscesses or exudates. Medications Administered Discontinued Medications Generic Name Dose Route Start Last Admin Trade Name Freq PRN Reason Stop Dose Admin Al Hydroxide/Mg Hydroxide 30 ml 09/30/22 01:08 09/30/22 01:53 Magnesium Hydrox/Alum Hydrox 30 Ml Oral.Susp PO 09/30/22 01:09 30 ml ONCE ONE Administration Lidocaine HCl 15 ml 09/30/22 01:08 09/30/22 01:53 Lidocaine Hcl Viscous 2 % 15 Ml Solution MUCOUS MEM 09/30/22 01:09 15 ml ONCE ONE Administration Medical Decision Making Medical Decision Making [facility] Narrative: -patient tested negative for COVID, influenza, RSV and strep. Chest x-ray is negative. -patient has ongoing viral syndrome. No need for antibiotic at this time. Patient was given 1 dose of p.o. Decadron and viscous lidocaine to help with the symptoms. Lab Data [facility] Lab Attestation statement: I reviewed the patient's lab results. Labs: Lab Results 09/30/22 09/30/22 09/30/22 Range/Units 01:22 01:22 01:57 COVID-19 (MAHESH) Negative (Negative) COVID-19 Clin Com See Note Influenza Type A (FAUSTINO) Negative (Negative) Influenza Type B (FAUSTINO) Negative (Negative) Influenza A & B Note See Note S. pyogenes GrpA FAUSTINO Negative (Negative) Independent Interpretation I performed an independent interpretation of an: Plain X-Ray (My x-ray interpretation: No infiltrates) Radiology Impression Discussion of test interpretation with radiology: I have reviewed the radiologist's reading. Radiologist Impression: FINDINGS: The lungs are clear with no focal consolidation. No evidence of pneumothorax, pulmonary edema, or pleural effusions. The cardiomediastinal silhouette is unremarkable. No acute osseous findings. XR/XR chest 1V IMPRESSION: No acute cardiopulmonary findings. ? Discharge Plan Discharge Clinical Impression: Acute viral syndrome Patient Disposition: Home, Self-Care Instructions: Pharyngitis (ED) Additional Instructions: Please follow-up with your primary care physician tomorrow. If you have any worsening or new symptoms, please return to the emergency room or call 911 Prescriptions: New benzocaine 10 % suspension for reconstitution 15 ml mucous membrane QID PRN (Reason: mouth pain) Qty: 60 0RF Rx Instructions: swish and spit No Action pantoprazole [Protonix] 40 mg tablet,delayed release (DR/EC) 40 mg PO DAILY Qty: 30 0RF sucralfate 1 gram tablet 1 g PO TID Qty: 90 0RF nitrofurantoin monohyd/m-cryst [Macrobid] 100 mg capsule 100 mg PO Q12H 7 Days Qty: 14 0RF Rx Instructions: must administer with a meal/food pantoprazole [Protonix] 40 mg tablet,delayed release (DR/EC) 40 mg PO DAILY Qty: 30 0RF sucralfate [Carafate] 1 gram tablet 1 g PO BID Qty: 60 0RF penicillin V potassium 500 mg tablet 500 mg PO BID Qty: 10 0RF
[2022-09-30 01:13] VITALS: BP 117/67; PULSE 70; RESP 16; TEMP 36.8; O2SAT 96; BMI 19.8
--- OUTSIDE RECORDS SUMMARY | 2022-09-30 01:39 | XMS_ITS | Continuity of Care Document ---
:2000 Author Organization [facility] Address [address] [place] [id number]- Care Team Providers Name Role Phone Rosa Luevano MD Primary Care Physician Encounter [facility] Date(s): 09/02/19 - 09/02/[address] [address]- [facility] Discharge Disposition: A-D/C Walkout Attending Physician: Not on Staff, Attending MD Admitting Physician: Not on Staff, Admitting MD Referring Physician: Not on Staff, Referring MD Allergies, Adverse Reactions, Alerts Substance Reaction Severity Status NKA Active Medications MiraLax oral powder for reconstitution = 17 Gm, By Mouth, Daily, # 1 bottle, 5 Refills, Maintenance Start Date: 09/04/12 Status: Ordered Vital Signs Most recent to oldest [Reference Range]: 1 2 Weight 64.0 kg 64.0 kg (09/02/19 3:50 PM) (09/02/19 3:29 PM) Oxygen Saturation [94-100 %] 98 % 100 % (09/02/19 3:29 PM) (09/02/19 3:22 PM) Pulse Rate [55-90 bpm] 59 bpm 67 bpm (09/02/19 3:29 PM) (09/02/19 3:22 PM) Blood Pressure [71-110/30-71 mm Hg] 104/60 mm Hg (09/02/19 3:29 PM) Respiratory Rate [16-30 br/min] 16 br/min (09/02/19 3:29 PM) Temperature [96.8-100.4 DegF] 97.5 DegF (09/02/19 3:29 PM) Mode of Delivery (Oxygen) Room air Room air (09/02/19 3:29 PM) (09/02/19 3:22 PM) Blood pressure sites Arm, right (09/02/19 3:29 PM) Temperature Route Oral (09/02/19 3:29 PM) Dry Weight 64.0 kg 64.0 kg (09/02/19 3:50 PM) (09/02/19 3:29 PM) Weight Obtained Via Standing scale (09/02/19 3:29 PM) Dry Weight Obtained Via Standing scale (09/02/19 3:29 PM)
--- OUTSIDE RECORDS SUMMARY | 2022-09-30 01:39 | XMS_ITS | Continuity of Care Document ---
:2000 Author Organization [facility] Address [address] [place] [id number]- Care Team Providers Name Role Phone Bonita COOK, Marily Chavis Primary Care Physician Encounter [facility] Date(s): 10/04/19 - 10/04/[address] [address]- [facility] Encounter Diagnosis Influenza B (Final) - 10/04/19 Discharge Disposition: A-D/C Home Attending Physician: Hamzah Baig MD Admitting Physician: Hamzah Baig MD Referring Physician: Not on Staff, Referring MD Allergies, Adverse Reactions, Alerts Substance Reaction Severity Status NKA Active Medications MiraLax oral powder for reconstitution = 17 Gm, By Mouth, Daily, # 1 bottle, 5 Refills, Maintenance Start Date: 09/04/12 Status: Ordered Results Radiology Reports Exam Date Time Procedure Performing Provider Status 10/04/19 9:01 PM Esophagus Barium Swallow Arleth San; [place]avan ( Verified) Notes:(Esophagus Barium Swallow) Reason For Exam: chest pain after endoscopy r/o rupture, water soluble please;Other:RESULT: Esophagus Barium Swallow PROCEDURE: Esophagus Barium Swallow CLINICAL INDICATION: Chest pain after endoscopy r o rupture, water soluble please; Clinical Question(s): Perforation; Hx of Present Illness: pt reports fever, cp since having endoscopy on Friday. also having sob x 1-2 weeks. denies n v d, cough. temp = 101 Friday into Friday. cp worsened by swallowing, palpation.; Other Objective Findings: A Ox3. very anxious. resps even and nonlabored COMPARISONS: Chest 2 views earlier same day FLUOROSCOPY TIME: 1.0 Min Dose Area Product (DAP): 1226.8 uGy*m2 TECHNIQUE: Water-soluble contrast study was performed by Dr. Urbanczyk. FINDINGS: Swallow: Normal oral and pharyngeal phases with no laryngeal penetration or subglottic aspiration. Esophagus: Normal in contour and mucosal appearance. Normal esophageal motility, with prompt transitof liquid barium into the stomach. No hiatal hernia. No evidence of contrast leak, esophageal web, narrowing or outpouching. No esophageal obstruction. The stomach is grossly normal. Contrast promptly empties from the stomach into a nondilated duodenum. No gastric outlet obstruction. IMPRESSION: Unremarkable esophagram without evidence of perforation. I have personally reviewed the images and I agree with this report. WSN: [id number] Dictated By: Paul Smallwood DO Dictated Date/Time: 10/04/19 10:16 p Reviewed By: Reynaldo Live MD Signed By: Reynaldo Live MD Signed Date/Time: 10/04/19 10:21 pm Transcribed By: JELENA Transcribed Date/Time: 10/04/19 9:30 pm Exam Date Time Procedure Performing Provider Status 10/04/19 8:05 PM Chest 2 Views Frontal and Lat Emelina Kelly; Auth (Verified) Notes:(Chest 2 Views Frontal and Lat) Reason For Exam: CP s/p endoscopy;Other: RESULT: Chest 2 Views Frontal and Lat Chest 2 Views Frontal and Lat Reason: CP s p endoscopy; Clinical Question(s): Other:; Pneumomediastinum, pneumothorax, Pneumopericardium; Hx of Present Illness: pt reports fever, cp since having endoscopy on Friday. also having sobx 1-2 weeks. denies n v d, cough. temp = 101 Friday into Friday. cp worsened by swallowing, palpation COMPARISON: None FINDINGS: LINES AND TUBES: None. LUNGS AND PLEURA: The lungs are hyperinflated. There are prominent parahilar interstitial markings. No segmental or lobar parenchymal consolidation. No pleural effusion. No pneumothorax. HEART, MEDIASTINUM AND JIMENA: Normal. BONES AND SOFT TISSUES: Normal. IMPRESSION: Features of viral lower respiratory tract infection or airway inflammation/reactive airways disease.No acute consolidative pneumonia. WSN: [id number] Dictated By: Mack Baxter DO Dictated Date/Time: 10/04/19 8:11 pm Reviewed By: Mack Baxter DO Signed By: Mack Baxter DO Signed Date/Time: 10/04/19 8:11 pm Transcribed By: JELENA Transcribed Date/Time: 10/04/19 8:10 pm Vital Signs Most recent to oldest [Reference 1 2 3 Range]: Oxygen Saturation [94-100 %] 100 % 100 % 100 % (10/04/19 10:34 PM) (10/04/19 7:44 PM) (10/04/19 4:04 PM) Pulse Rate [55-90 bpm] 78 bpm 77 bpm 64 bpm (10/04/19 10:34 PM) (10/04/19 7:44 PM) (10/04/19 4:04 PM) Blood Pressure [90-138/55-84 mm 104/60 mm Hg 102/63 mm Hg 101/61 mm Hg Hg] (10/04/19 10:34 PM) (10/04/19 7:44 PM) (10/04/19 4:04 PM) Respiratory Rate [16-30 br/min] 16 br/min 20 br/min 22 br/min (10/04/19 10:34 PM) (10/04/19 7:44 PM) (10/04/19 4:04 PM) Temperature [96.8-100.4 DegF] 98.3 DegF (10/04/19 4:04 PM) Mode of Delivery (Oxygen) Room air Room air Room a ir (10/04/19 10:34 PM) (10/04/19 7:44 PM) (10/04/19 4:04 PM) Temperature Route Oral (10/04/19 4:04 PM) Social History Social History Type Response Smoking Status Never (less than 100 in life time) entered on: 10/04/19 Sex
[2022-09-30 01:44] LABS: COVID-19 Test Negative (Negative); IDNOW Serial# 16C4AD1C; IDNOW Serial# BCCEAD1C; Influenza A Negative (Negative); Influenza B2 Negative (Negative)
[2022-09-30] MEDS: Magnesium Hydrox/Alum Hydrox 30 ML ORAL.SUSP PO (01:53)
[2022-09-30] MEDS: Lidocaine HCl Viscous 2 % 15 ML SOLUTION MUCOUS MEM (01:53)
--- NOTE | 2022-09-30 02:06 | PC.NURSE ---
pt c/o of sore thrt a&o no respiratory distress, resting quietly while watching tv
--- NOTE | 2022-09-30 02:08 | PC.NURSE ---
collected thrt swab for strep test and sent to lab via tube system
[2022-09-30 02:14] LABS: IDNOW Serial# 6674DD1D; Strep A Nucleic Acid Negative (Negative)
== END 2022-09-30 02:45 | disposition home or self-care (01) ==
PROVIDERS: Emergency Provider Emergency Medicine
DX: J02.8 Acute pharyngitis due to other specified organisms (principal); R05.9 Cough, unspecified; Z20.822 Contact with and (suspected) exposure to COVID-19; Z20.828 Contact with and (suspected) exposure to other viral communicable diseases; Z79.899 Other long term (current) drug therapy
CPT/HCPCS: 36415; 71045; 87502; 87635; 87651; 99283; 99284

== ENCOUNTER 2023-08-28 08:49 | Emergency (ER) | payer MEDICAID, SELFPAY ==
[2023-08-28 08:59] VITALS: BP 126/69; PULSE 65; RESP 16; TEMP 36.6; O2SAT 97; BMI 19.8
--- NOTE | 2023-08-28 09:13 | PC.NURSE ---
a&ox4, vss and up to date. pt comes in today d/t new onset left sided cheek/facial swelling. pimple noted to outside of left nose. pt verbalizes slight pain 3/10. denies headache/change in vision/any other sx. 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 resting comfortably in no apparent distress.
--- NOTE | 2023-08-28 09:27 | ED_ITS ---
HPI - Skin/Abscess/Foreign Bdy General Chief complaint: Skin/Abscess/Foreign Body Stated complaint: l eye swelling Time Seen by Provider: 08/28/23 09:06 Source: patient, RN notes reviewed and old records reviewed Mode of arrival: ambulatory History of Present Illness HPI narrative: 22-year-old male with no significant past medical history presenting to the ED complaining of left-sided facial swelling extending from pimple which he picked at yesterday on left cheek. Reports infraorbital swelling. Denies fever/chills, eye drainage, vision change/loss MD complaint: abscess/boil Related Data Previous Rx's Medication Instructions Recorded pantoprazole 40 mg tablet,delayed 40 mg PO DAILY #30 tabs 12/19/20 release (Protonix) sucralfate 1 gram tablet 1 g PO TID #90 tabs 12/19/20 nitrofurantoin 100 mg PO Q12H 7 days #14 caps 02/28/21 monohydrate/macrocrystals 100 mg capsule (Macrobid) pantoprazole 40 mg tablet,delayed 40 mg PO DAILY #30 tabs 06/23/21 release (Protonix) sucralfate 1 gram tablet (Carafate) 1 g PO BID #60 tabs 06/23/21 penicillin V potassium 500 mg 500 mg PO BID #10 tabs 09/16/22 tablet benzocaine 10 % oral rinse 15 ml mucous membrane QID PRN 09/30/22 suspension mouth pain #60 mL cephalexin 500 mg capsule 500 mg PO QID 7 days #28 caps 08/28/23 doxycycline hyclate 100 mg tablet 100 mg PO BID 7 days #14 tabs 08/28/23 Allergies Allergy/AdvReac Type Severity Reaction Status Date / Time No Known Allergies Allergy Verified 03/27/22 22:44 [No Known Allergies*] Review of Systems Review of Systems: Constitutional: No Fever, No Chills ENT/Mouth: +facial swelling, +pimple, No Ear Pain, No Nasal Congestion, No sore throat, No Rhinorrhea, No Swallowing Difficulty Cardiovascular: No Chest Pain, No SOB Respiratory: No Cough Gastrointestinal: No Nausea, No Vomiting, No Abdominal pain Musculoskeletal: No joint pain, No Myalgias, No Joint Swelling Skin: No Skin Lesions, No rash Neuro: No Weakness Yes all other systems are reviewed and are negative Constitutional: Constitutional: Reports as per HPI [facility] Past Medical History Attestation statement: The following information was validated with the patient. Source: old records reviewed Medical History Peptic ulcer Social History Social History Alcohol intake: never Smoked in Last 30 Days: No Use of substances other than those prescribed or required for medical reasons: Yes Substance Use Type: Marijuana Advance Directives: No Physical Exam Vital Signs: Vital Signs: Last Vital Signs Temp 97.9 F 08/28/23 08:59 Pulse 65 08/28/23 08:59 Resp 16 08/28/23 08:59 BP 126/69 08/28/23 08:59 Pulse Ox 97 08/28/23 08:59 O2 Del Method Room Air 08/28/23 08:59 BMI result Body Mass Index 19.8 Const: General: cooperative, healthy appearing and no acute distress Orientation/consciousness: patient oriented x3 Limitations: no limitations HEENT: Other: + erythematous indurated pimple to left cheek with extending swelling and slight erythema to left infraorbital region. No ocular involvement. EOMs intact with out pain. No fluctuance or drainage. Poor dentition, no intraoral swelling or infection/abscess appreciated Head: Yes normal to inspection and Yes atraumatic Ears: hearing grossly normal bilaterally General nose exam: Normal external nose present Throat: Yes posterior oropharynx normal, Yes tonsils normal, Yes uvula midline and No peritonsillar mass Eyes: General: appearance normal, both eyes and all related structures EOM: EOMs intact bilaterally Neck: Neck: Yes normal visual inspection and Yes no meningeal signs Resp: Effort & Inspection: normal respiratory effort and no respiratory distress Cardio: Rate: regular rate Skin: Rashes: no rashes Neuro: General: patient oriented x3, tone normal and no meningeal signs Cranial nerves: Yes CN's II-XII intact bilaterally Gait exam (Neuro): Normal gait present Extrem: General: Yes normal to inspection Medical Decision Making Medical Decision Making MDM Narrative: 22-year-old male with no significant past medical history presenting to the ED complaining of left-sided facial swelling extending from pimple which he picked at yesterday on left cheek. On exam vital signs stable, NAD, nontoxic appearing physical exam as noted aboveConsistent with acne vulgaris with early cellulitis. No I&D required at this time. Low suspicion for periorbital/orbital cellulitis or dental abscess Plan: P.o. antibiotics Please refer to course for remaining clinical decision making, interpretation of labs/imaging results, and discussions with consultants and/or family members. Results discussed with patient including worrisome signs and symptoms and strict return precautions, and when to return to the emergency department. They verbalized understanding and feel safe for discharge at this time. Differential Diagnosis Differential Diagnoses: The differential diagnosis associated with the presentation includes As above External Record Review External record reviewed: Inpatient record, Office record, Outpatient record, Prior outpatient labs, Prior outpatient radiology, Primary care record and Outside ED record Tests considered The following testing was considered but not selected: As above Prescription Management I considered prescription management with: Pain Medication and Antibiotic Discharge Plan Discharge Clinical Impression: Skin pimple Patient Disposition: Home, Self-Care Instructions: Cellulitis (DC) Additional Instructions: Apply warm compresses Please take doxycycline and Keflex as prescribed If area persists or worsens returns to bowser please return to the emergency department Follow-up with your doctor Prescriptions: New cephalexin 500 mg capsule 500 mg PO QID 7 Days Qty: 28 0RF doxycycline hyclate 100 mg tablet 100 mg PO BID 7 Days Qty: 14 0RF No Action pantoprazole [Protonix] 40 mg tablet,delayed release (DR/EC) 40 mg PO DAILY Qty: 30 0RF sucralfate 1 gram tablet 1 g PO TID Qty: 90 0RF nitrofurantoin monohyd/m-cryst [Macrobid] 100 mg capsule 100 mg PO Q12H 7 Days Qty: 14 0RF Rx Instructions: must administer with a meal/food pantoprazole [Protonix] 40 mg tablet,delayed release (DR/EC) 40 mg PO DAILY Qty: 30 0RF sucralfate [Carafate] 1 gram tablet 1 g PO BID Qty: 60 0RF benzocaine 10 % suspension for reconstitution 15 ml mucous membrane QID PRN (Reason: mouth pain) Qty: 60 0RF Rx Instructions: swish and spit penicillin V potassium 500 mg tablet 500 mg PO BID Qty: 10 0RF Referrals: Physician,None [Primary Care Provider] - 5 days Stand Alone Forms: Work/School Release
== END 2023-08-28 09:39 | disposition home or self-care (01) ==
PROVIDERS: Emergency Provider Emergency Medicine
DX: R23.8 Other skin changes (principal); R22.0 Localized swelling, mass and lump, head; Z79.899 Other long term (current) drug therapy
CPT/HCPCS: 99284

== ENCOUNTER 2023-08-30 00:32 | Emergency (ER) | payer MEDICAID, SELFPAY | END 2023-08-30 01:02 | disposition left against medical advice (07) | PROVIDERS: Emergency Provider Emergency Medicine | DX: R22.1 Localized swelling, mass and lump, neck (principal) ==

== ENCOUNTER 2023-09-17 09:25 | Outpatient (REF) | payer MEDICAID, SELFPAY ==
[2023-09-17 11:26] LABS: MANUAL DIFF FLAG NO
[2023-09-17 11:29] LABS: Basophils Absolute Auto 0.1 X10*3/uL (0.0-0.2); Basophils Percent Auto 0.8 % (0-2); Eosinophils Percent Auto 0.5 % (0-4); Hematocrit 47.8 % (42.0-52.0); Imm Gran Abs Auto 0.01 X10*3/uL (0.00-0.03); Imm Gran Pct Auto 0.2 % (0.0-0.4); Lymphocytes Absolute Auto 2.1 X10*3/uL (1.2-4.9); Lymphocytes Percent Auto 33.8 % (20-40); Mean Corpuscular HGB Conc 35.6 g/dl (31.0-36.0); Mean Corpuscular Hemoglobin 31.4 pg (27.0-33.0); Mean Corpuscular Volume 88.2 fL (80.0-98.0); Mean Platelet Volume 10.6 fL (9.4-12.4); Monocytes Absolute Auto 0.6 X10*3/uL (0.1-1.2); Monocytes Percent Auto 9.6 % (2-11); Neutrophils Absolute Auto 3.5 x10*3/uL (2.0-8.3); Neutrophils Percent Auto 55.1 % (45-73); Platelet Count 307 X10*3/uL (160-400); Red Blood Count 5.42 X10*6/uL (4.60-5.80); Red Cell Distribution Width 12.5 % (11.0-16.0); White Blood Count 6.3 X10*3/uL (4.8-10.8)
[2023-09-17 11:52] LABS: Anion Gap 14 (12-20); Blood Urea Nitrogen 10 mg/dL (9-16); Carbon Dioxide 25 mmol/L (22-29); Chloride 108 mmol/L (96-108); Estimated Glomerular Filt Rate > 60; Glucose Random 97 mg/dL (60-115); Potassium 4.5 mmol/L (3.3-5.1); Sodium 142 mmol/L (135-145)
[2023-09-17 12:14] LABS: TSH reflex Free T4 0.91 uIU/mL (0.32-4.0)
== END 2023-09-17 09:26 | disposition home or self-care (01) ==
LOC: HO.HHCL 09:25
PROVIDERS: Visit Provider Internal Medicine
DX: F41.9 Anxiety disorder, unspecified (principal)
CPT/HCPCS: 36415; 80048; 84443; 85025

== ENCOUNTER 2023-09-20 17:49 | Emergency (ER) | payer MEDICAID, SELFPAY ==
[2023-09-20 17:50] VITALS: BP 122/82; PULSE 86; RESP 18; TEMP 36.5; O2SAT 97; BMI 20.1
--- NOTE | 2023-09-20 17:51 | ED.GENADULT ---
HPI - General Adult General Chief complaint: General Medical Stated complaint: head feels uncomfortable,gagging Time Seen by Provider: 09/20/23 18:16 Source: patient Mode of arrival: ambulatory Limitations: no limitations History of Present Illness HPI narrative: Patient is a 23-year-old male with history of PUD and anxiety presenting to the emergency department with complaint of uncomfortable feeling to right side of head since Friday. Patient reports that for the past 2 weeks he has been having epigastric pain as well as nausea, worse at night and with lying down. States that on Friday he took THC edibles from the sensory totaling between 200-250 mg to attempt to help with his nausea. He states that this is significantly more THC then he is used to consuming and it caused acute anxiety. States this is when the discomfort to the right side of his head began. He denies any headache, double vision, blurred vision or other visual changes, tinnitus. He does report ongoing epigastric pain, nausea, dry heaving this week. Was seen at clinic earlier this week and prescribed hydroxyzine which he states made him feel worse instead of better. He denies any diarrhea. Denies chest pain, palpitations, dyspnea, fevers. States that he is currently on omeprazole prescribed by his PCP. Has seen GI in the past but this was when he was a pediatric patient, does not have an adult GI provider. MD complaint: epigastric pain, nausea Onset (ago): day(s) Location: abdomen Radiation: non-radiation Severity: mild Quality: burning (epigastric) Pain Consistency: colicky Relieving factors: none Exacerbating factors: other (laying supine) Associated symptoms: nausea/vomiting Treatments prior to arrival: other Related Data Previous Rx's Medication Instructions Recorded pantoprazole 40 mg tablet,delayed 40 mg PO DAILY #30 tabs 12/19/20 release (Protonix) sucralfate 1 gram tablet 1 g PO TID #90 tabs 12/19/20 nitrofurantoin 100 mg PO Q12H 7 days #14 caps 02/28/21 monohydrate/macrocrystals 100 mg capsule (Macrobid) pantoprazole 40 mg tablet,delayed 40 mg PO DAILY #30 tabs 06/23/21 release (Protonix) sucralfate 1 gram tablet (Carafate) 1 g PO BID #60 tabs 06/23/21 penicillin V potassium 500 mg 500 mg PO BID #10 tabs 09/16/22 tablet benzocaine 10 % oral rinse 15 ml mucous membrane QID PRN 09/30/22 suspension mouth pain #60 mL cephalexin 500 mg capsule 500 mg PO QID 7 days #28 caps 08/28/23 doxycycline hyclate 100 mg tablet 100 mg PO BID 7 days #14 tabs 08/28/23 Allergies Allergy/AdvReac Type Severity Reaction Status Date / Time No Known Allergies Allergy Verified 03/27/22 22:44 [No Known Allergies*] Review of Systems Review of Systems: As per HPI. Yes all other systems are reviewed and are negative Constitutional: Constitutional: Reports as per HPI Neurologic: Denies Abnormal speech present PMFSH Past Medical History Onset Date is defined in the Problem List Problems that require an onset date and time if occurred within 24 hrs of arrival to the ED Aortic Dissection and Rupture; Neurologic impairment; Cardiopulmonary Arrest; Endotracheal Intubation; Insertion or Replacement of Mechanical Circulatory Assist Device Medical History Peptic ulcer Social History Social History Alcohol intake: never Substance Use Type: Marijuana Advance Directives: No Advance Directives Information Provided: No Physical Exam ED Vital Signs: Vital Signs - 24 hr 09/20/23 17:50 09/20/23 19:06 Temperature 97.7 F 98 F Pulse Rate 86 84 Respiratory Rate 18 18 Blood Pressure 122/82 126/82 Pulse Oximetry 97 98 Oxygen Delivery Method Room Air Room Air BMI result Body Mass Index 20.1 Vital signs have been reviewed and appear to be correct. Blood pressure normal. Heart rate normal. Respiratory rate normal. Temperature normal. Oxygen saturation normal. Const General: cooperative, healthy appearing and no acute distress Orientation/consciousness: oriented to person, oriented to place, oriented to time and patient oriented x3 Limitations: no limitations HENMT Head: Yes normocephalic and Yes atraumatic Ears: external ears normal, TM's normal bilaterally and EAC's normal General nose exam: Normal external nose present, Normal nasal mucous membranes and turbinates present and Normal septum present Face and sinus: Yes normal facial exam, Yes sinuses nontender and Yes face symmetric Mouth: Normal oral and palatal mucosa present, oropharynx normal and moist mucous membranes Throat: Yes posterior oropharynx normal, Yes tonsils normal, Yes uvula midline and No uvular edema Eyes General: appearance normal, both eyes and all related structures Visual Pérez: normal visual pérez by confrontation Pupils: Equal, round and reactive pupils present EOM: EOMs intact bilaterally Neck Neck: Yes normal visual inspection, Yes no meningeal signs and Yes supple Lymphatic: no lymphadenopathy noted Resp Effort & Inspection: normal respiratory effort and able to speak in complete sentences Auscultation: clear to auscultation bilaterally Cardio Rate: regular rate Rhythm: regular rhythm Heart sounds: S1 normal heart sound present and S2 normal heart sound present GI Palpation (GI): Soft to palpation and nontender Auscultation: normoactive bowel sounds General: Yes no CVA tenderness Back/Spine/Pelvis Back: no CVA tenderness Skin General skin exam: elasticity normal and turgor normal Neuro General: oriented to person, oriented to place, oriented to time, patient oriented x3, gait normal, tone normal, moves all extremities, Normal light touch and pain sensation, no meningeal signs, no focal motor deficits, CN's II-XI intact bilaterally and deep tendon reflexes 2+ bilaterally Cranial nerves: Yes Equal, round and reactive pupils present Cognition (Neuro): normal cognition Speech: No Abnormal speech present Gait exam (Neuro): Normal gait present Motor exam (neuro): 5/5 motor strength present throughout, Pronator motor function not present, Normal motor muscle tone present throughout and Motor abnormalities not present Sensory Exam: Normal double simultaneous stimulation for sensation Extrem General: Yes full ROM, Yes no pedal edema and Yes no calf tenderness Psych Mental Status: mental status grossly normal Affect: normal affect Thought process: Normal thought process present NIH Stroke Scale Internal: Initial- Upon Arrival Time: 19:08 Level of Consciousness: Alert Level of Consciousness Questions: Answers both questions correctly Level of Consciousness Commands: Performs both tasks correctly Best Gaze: Normal Visual: No visual loss Facial Palsy: Normal Motor Arm (Right): No drift Motor Arm (Left): No drift Motor Leg (Right): No drift Motor Leg (Left): No drift Limb Ataxia: Absent Sensory: Normal Best Language: No aphasia Dysarthia: Normal Extinction and Inattention: No abnormality Score: 0 Course Course Course Narrative: This is a rapid medical exam: Additional HPI, ROS, PE not included below will be deferred to primary provider. Patient is a 23-year-old male with history of PUD presenting to the ED with complaint of uncomfortable feeling to right side of head and dry heaving since Friday. States he ate an edible on Friday totaling approximately 250mg of THC, and symptoms began after that. Denies headache or any other pain. Denies any vision changes. Denies abdominal pain. Plan: viral swabs Medications Administered Discontinued Medications Generic Name Dose Route Start Last Admin Trade Name Pascual PRN Reason Stop Dose Admin Diphenhydramine HCl 25 mg 09/20/23 18:37 09/20/23 18:53 Diphenhydramine Hcl 50 Mg/Ml Vial IVPUSH 09/20/23 18:38 25 mg ONCE ONE Administration Sodium Chloride 1,000 mls @ 999 mls/hr 09/20/23 18:45 09/20/23 18:47 Ns IV 09/20/23 19:45 999 mls/hr .Q1H1M HECTOR Administration Ketorolac Tromethamine 15 mg 09/20/23 18:37 09/20/23 18:53 Ketorolac Tromethamine 15 Mg/Ml Vial IVPUSH 09/20/23 18:38 15 mg ONCE ONE Administration Metoclopramide HCl 10 mg 09/20/23 18:37 09/20/23 18:54 Metoclopramide Hcl 10 Mg/2 Ml Vial IVPUSH 09/20/23 18:38 10 mg ONCE ONE Administration Medical Decision Making Medical Decision Making MDM Narrative: Patient is a 23-year-old male with history of PUD and anxiety presenting to the emergency department with complaint of uncomfortable feeling to right side of head since Friday. On exam patient is awake, A+Ox3, VS WNL, afebrile, normal neurological exam without focal deficits, physical exam findings as above. Given reported symptoms and physical exam findings, initial differential includes atypical migraine, viral illness, PUD, GERD. Do not suspect ICH/SAH, herpes zoster/Joseph Peña. Swabs for flu and Covid both negative. Will treat with IV fluids, metoclopramide, ketorolac, and diphenhydramine. 20:01 Patient reports full resolution of right sided head discomfort after medications administered in the ED. Feel symptoms are most consistent with atypical migraines. Advised patient to discuss this with his PCP. Will also refer to GI for further evaluation and management of nausea/epigastric pain. Return precautions discussed with patient at bedside. Patient verbalized understanding of and agreement with plan. Differential Diagnosis Differential Diagnoses: The differential diagnosis associated with the presentation includes As per [facility] Lab Data [facility] Lab Attestation statement: I reviewed the patient's lab results. As per [facility] Labs: Lab Results 09/20/23 Range/Units 18:03 COVID-19 (MAHESH) Negative (Negative) COVID-19 Clin Com See Note Influenza Type A (FAUSTINO) Negative (Negative) Influenza Type B (FAUSTINO) Negative (Negative) Influenza A & B Note SN External Record Review External record reviewed: Inpatient record, Office record and Outpatient record Discharge Plan Discharge Clinical Impression: Atypical migraine, Epigastric pain, Nausea Patient Disposition: Home, Self-Care Instructions: Peptic Ulcer (ED), Migraine Headache (ED), Epigastric Pain (ED) Additional Instructions: Your evaluation in the emergency department today did not reveal conditions requiring emergent medical treatment. Your symptoms improved with medication in the ED. you are being referred to Gastroenterology for further evaluation and management of your epigastric pain and nausea. Please call their office to schedule an appointment. Your head symptoms improved with migraine medications, please discuss this with your primary care provider. Return to the emergency department if you develop severe headache, changes in vision, new weakness, numbness, tingling, difficulty with everyday tasks, persistent vomiting, fever 100.4? F or greater, or any other concerning symptoms. Prescriptions: No Action pantoprazole [Protonix] 40 mg tablet,delayed release (DR/EC) 40 mg PO DAILY Qty: 30 0RF sucralfate 1 gram tablet 1 g PO TID Qty: 90 0RF nitrofurantoin monohyd/m-cryst [Macrobid] 100 mg capsule 100 mg PO Q12H 7 Days Qty: 14 0RF Rx Instructions: must administer with a meal/food pantoprazole [Protonix] 40 mg tablet,delayed release (DR/EC) 40 mg PO DAILY Qty: 30 0RF sucralfate [Carafate] 1 gram tablet 1 g PO BID Qty: 60 0RF benzocaine 10 % suspension for reconstitution 15 ml mucous membrane QID PRN (Reason: mouth pain) Qty: 60 0RF Rx Instructions: swish and spit penicillin V potassium 500 mg tablet 500 mg PO BID Qty: 10 0RF cephalexin 500 mg capsule 500 mg PO QID 7 Days Qty: 28 0RF doxycycline hyclate 100 mg tablet 100 mg PO BID 7 Days Qty: 14 0RF Referrals: [facility] [place] G[facility]ology Services [Provider Group]
[2023-09-20 18:29] LABS: COVID-19 Test Negative (Negative); IDNOW Serial# 55D5AD1C
[2023-09-20] MEDS: 0.9 % Sodium Chloride 1,000 ML 999 ML IV (18:47)
[2023-09-20] MEDS: Ketorolac Tromethamine 15 MG/ML VIAL IVPUSH (18:53)
[2023-09-20] MEDS: diphenhydrAMINE HCL 50 MG/ML VIAL 25 MG IVPUSH (18:53)
[2023-09-20] MEDS: Metoclopramide HCl 10 MG/2 ML VIAL IVPUSH (18:54)
[2023-09-20 19:06] VITALS: BP 126/82; PULSE 84; RESP 18; TEMP 36.6; O2SAT 98
[2023-09-20 19:11] LABS: IDNOW Serial# 55D5AD1C; Influenza A Negative (Negative); Influenza A & B2 Note SN; Influenza B2 Negative (Negative)
[2023-09-20 20:34] VITALS: BP 118/73; PULSE 54; RESP 12
== END 2023-09-20 20:36 | disposition home or self-care (01) ==
PROVIDERS: Registered Nurse Emergency; Emergency Provider Emergency Medicine Emergency Medical Services
DX: G43.809 Other migraine, not intractable, without status migrainosus (principal); R10.13 Epigastric pain; R11.2 Nausea with vomiting, unspecified; Z11.52 Encounter for screening for COVID-19
CPT/HCPCS: 87635; 96361; 96374; 96375; 99284; J1200; J1885; J2765

== ENCOUNTER 2023-09-30 12:02 | Emergency (ER) | payer OTHER, MEDICAID, SELFPAY ==
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
[2023-09-30 12:20] VITALS: BP 106/64; PULSE 59; RESP 18; TEMP 36.3; O2SAT 97; BMI 19.6
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
[2023-09-30 14:49] VITALS: BP 103/54; PULSE 54; RESP 16; TEMP 36.4; O2SAT 99
== END 2023-09-30 15:47 | disposition home or self-care (01) ==
PROVIDERS: Emergency Provider Emergency Medicine Emergency Medical Services
DX: S29.012A Strain of muscle and tendon of back wall of thorax, initial encounter (principal); M54.6 Pain in thoracic spine; V43.52XA Car driver injured in collision with other type car in traffic accident, initial encounter; Y93.9 Activity, unspecified; Y92.410 Unspecified street and highway as the place of occurrence of the external cause; Y99.9 Unspecified external cause status
CPT/HCPCS: 72070; 99283; 99284

== ENCOUNTER 2024-03-20 13:28 | Emergency (ER) | payer MEDICAID, SELFPAY ==
--- NOTE | ~2024-03-20 | XR_ITS ---
EXAMINATION: XR KNEE, RIGHT CLINICAL INFORMATION: Pain, injury. COMPARISON: Radiograph right knee 05/12/2018. TECHNIQUE: Four views of the right knee. FINDINGS: No acute fracture or dislocation. Joint spaces are maintained. No joint effusion. XR/XR knee RT 3V IMPRESSION: No acute fracture or dislocation.
[2024-03-20 13:31] VITALS: BP 108/63; PULSE 73; RESP 18; TEMP 36.8; O2SAT 97; BMI 19.9
--- NOTE | 2024-03-20 13:31 | ED_ITS ---
HPI - General Adult General Chief complaint: Extremity Injury, Lower Stated complaint: R Knee Pain S/P Injury 03/10/24 Time Seen by Provider: 03/20/24 14:08 Source: patient Mode of arrival: ambulatory Limitations: no limitations History of Present Illness ED Provider: Yarelis Cook APRN HPI narrative: 23-year-old male who reports a history of bone cyst right knee >10 yrs ago that was treated with bracing here with pain to right knee x 3 weeks. Patient describes the pain as pressure. Patient reports pain is worsened with climbing stairs. Denies any numbness, weakness, tingling of the extremity. He denies any injury or trauma. Related Data Previous Rx's ?Medication ?Instructions ?Recorded pantoprazole 40 mg tablet,delayed 40 mg PO DAILY #30 tabs 12/19/20 release (Protonix) sucralfate 1 gram tablet 1 g PO TID #90 tabs 12/19/20 nitrofurantoin 100 mg PO Q12H 7 days #14 caps 02/28/21 monohydrate/macrocrystals 100 mg capsule (Macrobid) pantoprazole 40 mg tablet,delayed 40 mg PO DAILY #30 tabs 06/23/21 release (Protonix) sucralfate 1 gram tablet (Carafate) 1 g PO BID #60 tabs 06/23/21 penicillin V potassium 500 mg 500 mg PO BID #10 tabs 09/16/22 tablet benzocaine 10 % oral rinse 15 ml mucous membrane QID PRN 09/30/22 suspension mouth pain #60 mL cephalexin 500 mg capsule 500 mg PO QID 7 days #28 caps 08/28/23 doxycycline hyclate 100 mg tablet 100 mg PO BID 7 days #14 tabs 08/28/23 acetaminophen 500 mg tablet 500 mg PO Q6H PRN pain #30 tabs 09/30/23 (Tylenol Extra Strength) lidocaine 5 % topical patch 1 patch topical DAILY #30 ea 09/30/23 (DermacinRx Lidocan) Allergies Allergy/AdvReac Type Severity Reaction Status Date / Time No Known Allergies Allergy Verified 03/20/24 13:33 [No Known Allergies*] Review of Systems Review of Systems: Yes all other systems are reviewed and are negative Constitutional: Constitutional: Reports no additional constitutional complaints, Denies body ache(s), Denies chills, Denies fever(s), Denies headache(s) and Denies weakness Eyes: Eyes: Reports no additional eye complaints and Denies change in vision ENT: Reports system reviewed and no additional complaints, except as documented, Denies dizziness, Denies headache(s), Denies nasal congestion, Denies nasal discharge and Denies neck pain Cardiovascular: Cardiovascular: Reports no additional cardiovascular complaints, Denies chest pain, Denies leg edema and Denies dyspnea Respiratory: Respiratory: Reports no additional respiratory complaints, Denies cough and Denies dyspnea Gastrointestinal: Gastrointestinal: Reports no additional gastrointestinal complaints, Denies abdominal pain, Denies diarrhea, Denies nausea and Denies vomiting Genitourinary: Genitourinary: Denies urinary incontinence Musculoskeletal: Musculoskeletal: Reports no additional musculoskeletal complaints, Denies back pain, Reports arthralgias, Denies joint swelling, Denies limited range of motion, Denies neck pain, Denies numbness and Denies tingling Integumentary/Breasts: Skin/Breast: Reports system reviewed and no additional complaints, except as docu and Denies rash Neurologic: Reports system reviewed and no additional complaints, except as documented, Denies Abnormal speech present, Denies dizziness, Denies headache(s), Denies numbness, Denies tingling and Denies weakness [facility] Past Medical History Attestation statement: The following information was validated with the patient. Source: old records reviewed and nursing notes reviewed Medical History Peptic ulcer Social History Social History Alcohol intake: never Substance Use Type: Marijuana Advance Directives: No Advance Directives Information Provided: No Physical Exam ED Vital Signs: Vital Signs - 24 hr 03/20/24 13:31 Temperature 98.3 F Pulse Rate 73 Respiratory Rate 18 Blood Pressure 108/63 Pulse Oximetry 97 Oxygen Delivery Method Room Air BMI result Body Mass Index 19.9 Const General: cooperative, healthy appearing, comfortable and no acute distress Orientation/consciousness: patient oriented x3 Limitations: no limitations HENMT Head: Yes normal to inspection Ears: hearing grossly normal bilaterally General nose exam: Normal external nose present Face and sinus: Yes normal facial exam Mouth: Normal oral and palatal mucosa present Throat: Yes posterior oropharynx normal Eyes General: appearance normal, both eyes and all related structures Pupils: Equal, round and reactive pupils present Neck Neck: Yes normal visual inspection Chest Chest palpation & inspection: normal inspection of the chest Resp Effort & Inspection: normal respiratory effort Auscultation: clear to auscultation bilaterally Cardio Rate: regular rate Rhythm: regular rhythm Peripheral pulses: Peripheral pulses 2+ throughout GI Inspection: Yes normal to inspection Palpation (GI): Soft to palpation and nontender Auscultation: normal bowel sounds Back/Spine/Pelvis Thoracic/Lumbar Spine: thoracic and lumbar spine normal to inspection Skin General skin exam: no rashes or lesions noted Neuro General: patient oriented x3, no focal motor deficits and normal sensation to monofilament Cranial nerves: Yes Equal, round and reactive pupils present Cognition (Neuro): normal cognition Speech: No Abnormal speech present Gait exam (Neuro): Normal gait present Motor exam (neuro): 5/5 motor strength present throughout Extrem Other: There is pain to the anterior knee on palpation. There is no swelling, warmth or redness. There is full active and passive range of motion of the knee. There is normal DP and PT pulses. Normal distal sensation General: Yes normal to inspection Course Course Course Narrative: RME performed by Nuha Arreguin PA-C. Patient is a 23 year old assigned male at presenting to the emergency department with right knee pain. Patient states he fell 2 weeks ago and is still having pain there. Detailed physical exam and review of systems are deferred to the ic design manager. Imaging ordered. Patient placed back in the waiting room pending room availability and results. 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 Patient describes the pain as pressure. Patient reports pain is worsened with climbing stairs. Denies any numbness, weakness, tingling of the extremity. He denies any injury or trauma. there is pain to the anterior knee on palpation. There is no swelling, warmth or redness. There is full active and passive range of motion of the knee. There is normal DP and PT pulses. Normal distal sensation Will obtain x-ray Differential Diagnosis Differential Diagnoses: The differential diagnosis associated with the presentation includes Bursitis, ligamental injury, arthritis Low suspicion for septic joint Admission/Observation Consideration of admission/observation: Escalation of care including admission/observation considered Independent Interpretation I performed an independent interpretation of an: Plain X-Ray Interpretation: I independently viewed the x-ray and agree with the radiology report Radiology Impression Discussion of test interpretation with radiology: I have reviewed the radiologist's reading. Radiologist Impression: [address] [address] XRay Report Signed Patient: Valentino Caldwell MR#: [id number] : 2000 Acct:[id number] Age/Sex: 23 / M ADM Date: 03/20/24 Loc: HO.ED Attending Dr: Ordering Physician: Nuha Arreguin Date of Service: 03/20/24 Procedure(s): XR knee RT 3V Accession Number(s): [id number] cc: Nuha Arreguin; Physician,None ~ EXAMINATION: XR KNEE, RIGHT CLINICAL INFORMATION: Pain, injury. COMPARISON: Radiograph right knee 05/12/2018. TECHNIQUE: Four views of the right knee. FINDINGS: No acute fracture or dislocation. Joint spaces are maintained. No joint effusion. XR/XR knee RT 3V IMPRESSION: No acute fracture or dislocation. Discharge Plan Discharge Clinical Impression: Acute knee pain Patient Disposition: Home, Self-Care Instructions: Arthralgia (ED) Additional Instructions: Your x-rays do not show any bony abnormality. If you continued to have knee pain you may benefit from seeing an intelligence specialist. In the meantime apply ice, elevate, take an anti-inflammatory medication like ibuprofen as needed Prescriptions: No Action pantoprazole [Protonix] 40 mg tablet,delayed release (DR/EC) 40 mg PO DAILY Qty: 30 0RF sucralfate 1 gram tablet 1 g PO TID Qty: 90 0RF nitrofurantoin monohyd/m-cryst [Macrobid] 100 mg capsule 100 mg PO Q12H 7 Days Qty: 14 0RF Rx Instructions: must administer with a meal/food pantoprazole [Protonix] 40 mg tablet,delayed release (DR/EC) 40 mg PO DAILY Qty: 30 0RF sucralfate [Carafate] 1 gram tablet 1 g PO BID Qty: 60 0RF benzocaine 10 % suspension for reconstitution 15 ml mucous membrane QID PRN (Reason: mouth pain) Qty: 60 0RF Rx Instructions: swish and spit penicillin V potassium 500 mg tablet 500 mg PO BID Qty: 10 0RF cephalexin 500 mg capsule 500 mg PO QID 7 Days Qty: 28 0RF doxycycline hyclate 100 mg tablet 100 mg PO BID 7 Days Qty: 14 0RF lidocaine [DermacinRx Lidocan] 5 % adhesive patch,medicated 1 patch topical DAILY Qty: 30 0RF Rx Instructions: leave on most painful area for up to 12 hrs acetaminophen [Tylenol Extra Strength] 500 mg tablet 500 mg PO Q6H PRN (Reason: pain) Qty: 30 0RF Referrals: Physician,None [Primary Care Provider] - 1 week Stand Alone Forms: Work/School Release Print Language: Mauritanian
[2024-03-20 15:12] VITALS: BP 108/63; PULSE 73; RESP 18; TEMP 36.8; O2SAT 97
== END 2024-03-20 15:12 | disposition home or self-care (01) ==
PROVIDERS: Emergency Provider Emergency Medicine
DX: M25.561 Pain in right knee (principal)
CPT/HCPCS: 73562; 99282; 99283

== ENCOUNTER 2024-06-18 22:26 | Emergency (ER) | payer SELFPAY ==
[2024-06-18 22:34] VITALS: BP 106/65; PULSE 57; RESP 16; TEMP 36.3; O2SAT 99; BMI 21.8
[2024-06-18 23:04] LABS: Alanine Aminotransferase 13 U/L (0-40); Albumin Level 4.8 g/dL (3.5-5.0); Alkaline Phosphatase 75 U/L (39-117); Anion Gap 13 (12-20); Aspartate Amino Transferase 20 U/L (5-37); Bilirubin Total 1.1 mg/dL (0.0-1.0); Blood Urea Nitrogen 17 mg/dL (9-16); Calcium 9.7 mg/dL (8.4-10.2); Carbon Dioxide 26 mmol/L (22-29); Chloride 107 mmol/L (96-108); Creatinine Clr Calc Pharmacy 139.7; Estimated Glomerular Filt Rate > 60; Glucose Random 90 mg/dL (60-115); Lipase 19 U/L (8-78); Potassium 3.9 mmol/L (3.3-5.1); Sodium 142 mmol/L (135-145); Total Protein 7.4 g/dL (6.5-8.0)
[2024-06-18 23:21] LABS: Basophils Absolute Auto 0.1 X10*3/uL (0.0-0.2); Basophils Percent Auto 0.8 % (0-2); Eosinophils Absolute Auto 0.1 X10*3/uL (0.0-0.4); Eosinophils Percent Auto 2.1 % (0-4); Hematocrit 42.5 % (42.0-52.0); Imm Gran Abs Auto 0.01 X10*3/uL (0.00-0.03); Imm Gran Pct Auto 0.2 % (0.0-0.4); Lymphocytes Absolute Auto 3.2 X10*3/uL (1.2-4.9); Lymphocytes Percent Auto 50.8 % (20-40); Mean Corpuscular Volume 83.5 fL (80.0-98.0); Mean Platelet Volume 9.6 fL (9.4-12.4); Monocytes Absolute Auto 0.7 X10*3/uL (0.1-1.2); Monocytes Percent Auto 10.8 % (2-11); Neutrophils Absolute Auto 2.2 x10*3/uL (2.0-8.3); Neutrophils Percent Auto 35.3 % (45-73); Platelet Count 263 X10*3/uL (160-400); Red Blood Count 5.09 X10*6/uL (4.60-5.80); SCAN SMEAR FLAG 1; White Blood Count 6.2 X10*3/uL (4.8-10.8)
[2024-06-18 23:26] LABS: Hemoglobin 14.3 g/dl (14.0-18.0); MANUAL DIFF FLAG NO; Mean Corpuscular HGB Conc 33.6 g/dl (31.0-36.0)
[2024-06-18] MEDS: Pantoprazole Sodium 40 MG/10 ML VIAL IVPUSH (23:39)
--- NOTE | 2024-06-19 | ED_ITS ---
HPI - General Adult General Chief complaint: General Medical Stated complaint: blood in stool Time Seen by Provider: 06/18/24 23:08 Source: patient Mode of arrival: ambulatory Limitations: no limitations History of Present Illness ED Provider: Dr. Briceño HPI narrative: Patient states the he is 23yo with a history of PUD, who presents with a few weeks of epigastric burning and pain. now with constipation and hard stool and noticed blood in his underwear and on the toilet paper but the stools were hard. Related Data Previous Rx's ?Medication ?Instructions ?Recorded pantoprazole 40 mg tablet,delayed 40 mg PO DAILY #30 tabs 12/19/20 release (Protonix) sucralfate 1 gram tablet 1 g PO TID #90 tabs 12/19/20 nitrofurantoin 100 mg PO Q12H 7 days #14 caps 02/28/21 monohydrate/macrocrystals 100 mg capsule (Macrobid) pantoprazole 40 mg tablet,delayed 40 mg PO DAILY #30 tabs 06/23/21 release (Protonix) sucralfate 1 gram tablet (Carafate) 1 g PO BID #60 tabs 06/23/21 penicillin V potassium 500 mg 500 mg PO BID #10 tabs 09/16/22 tablet benzocaine 10 % oral rinse 15 ml mucous membrane QID PRN 09/30/22 suspension mouth pain #60 mL cephalexin 500 mg capsule 500 mg PO QID 7 days #28 caps 08/28/23 doxycycline hyclate 100 mg tablet 100 mg PO BID 7 days #14 tabs 08/28/23 acetaminophen 500 mg tablet 500 mg PO Q6H PRN pain #30 tabs 09/30/23 (Tylenol Extra Strength) lidocaine 5 % topical patch 1 patch topical DAILY #30 ea 09/30/23 (DermacinRx Lidocan) pantoprazole 40 mg tablet,delayed 40 mg PO DAILY #20 tabs 06/19/24 release (Protonix) Allergies Allergy/AdvReac Type Severity Reaction Status Date / Time No Known Allergies Allergy Verified 06/18/24 22:36 [No Known Allergies*] Review of Systems 2 Review of Systems: Yes all other systems are reviewed and are negative Neurologic: Denies Sensory deficit (Neuro) PMFSH Past Medical History Medical History Peptic ulcer Social History Social History Alcohol intake: never Smoked in Last 30 Days: No Use of substances other than those prescribed or required for medical reasons: No Substance Use Type: Marijuana Advance Directives: No Advance Directives Information Provided: No Do you have a plan to hurt others: No Plan Physical Exam ED Vital Signs: Vital Signs - 24 hr 06/18/24 22:34 Temperature 97.4 F Pulse Rate 57 Respiratory Rate 16 Blood Pressure 106/65 Pulse Oximetry 99 Oxygen Delivery Method Room Air BMI result Body Mass Index 21.8 Const Other: very thin male in no acute distress Nutritional Appearance: underweight Orientation/consciousness: oriented to person and patient oriented x3 Limitations: no limitations HENMT Head: Yes normal to inspection Ears: external ears normal General nose exam: Normal external nose present Mouth: Normal oral and palatal mucosa present and oropharynx normal Throat: Yes posterior oropharynx normal Eyes General: appearance normal, both eyes and all related structures Neck Neck: Yes normal visual inspection Chest Chest palpation & inspection: normal inspection of the chest Resp Auscultation: clear to auscultation bilaterally Cardio Jugular venous distension: no JVD Rate: regular rate Rhythm: regular rhythm Heart sounds: S1 normal heart sound present and S2 normal heart sound present GI Other: soft nontender abdomen Inspection: Yes normal to inspection Palpation (GI): Soft to palpation, nontender and No hepatosplenomegaly present Auscultation: normal bowel sounds Other: no hemorrhoids or fissure seen, brown stool heme negative Skin General skin exam: no rashes or lesions noted Neuro General: oriented to person and patient oriented x3 Cranial nerves: Yes CN's II-XII intact bilaterally Motor exam (neuro): 5/5 motor strength present throughout Sensory Exam: No Sensory deficit (Neuro) Extrem General: Yes normal to inspection Psych Appearance: grossly normal Course Reevaluation(s) Reevaluation #1: patient with gastritis and likely constipation. I expect he was bleeding from passing a hard stool. Will treat him with protonix for likely gastritis Time: 00:04 Medications Administered Discontinued Medications Generic Name Dose Route Start Last Admin Trade Name Freq PRN Reason Stop Dose Admin Pantoprazole Sodium 40 mg 06/18/24 23:28 06/18/24 23:39 Pantoprazole Sodium 40 Mg/10 Ml Vial IVPUSH 06/18/24 23:29 40 mg ONCE ONE Administration Medical Decision Making Differential Diagnosis Differential Diagnoses: The differential diagnosis associated with the presentation includes (PUD, gastritis, gastrointestinal hemorhage, constipation, anal fissure, hemorrhoids) Admission/Observation Consideration of admission/observation: Escalation of care including admission/observation considered (upon arrival patient considered for admission) Lab Data 06/18/24 22:46 06/18/24 22:46 Labs: Lab Results 06/18/24 Range/Units 22:46 WBC 6.2 (4.8-10.8) X10*3/uL RBC 5.09 (4.60-5.80) X10*6/uL Hgb 14.3 (14.0-18.0) g/dl Hct 42.5 (42.0-52.0) % MCV 83.5 (80.0-98.0) fL MCH 28.0 (27.0-33.0) pg MCHC 33.6 (31.0-36.0) g/dl RDW 12.0 (11.0-16.0) % Plt Count 263 (160-400) X10*3/uL MPV 9.6 (9.4-12.4) fL Immature Gran % (Auto) 0.2 (0.0-0.4) % Neut % (Auto) 35.3 L (45-73) % Lymph % (Auto) 50.8 H (20-40) % [place] % (Auto) 10.8 (2-11) % Eos % (Auto) 2.1 (0-4) % Baso % (Auto) 0.8 (0-2) % Lymph # (Auto) 3.2 (1.2-4.9) X10*3/uL [place] # (Auto) 0.7 (0.1-1.2) X10*3/uL Eos # (Auto) 0.1 (0.0-0.4) X10*3/uL Baso # (Auto) 0.1 (0.0-0.2) X10*3/uL Abs Immat Gran (auto) 0.01 (0.00-0.03) X10*3/uL Absolute Neuts (auto) 2.2 (2.0-8.3) x10*3/uL Absolute Nucleated RBC 0.000 (0.0-0.012) X10*3/uL Nucleated RBC % (auto) 0.0 (0.0-0.2) /100WBC Sodium 142 (135-145) mmol/L Potassium 3.9 (3.3-5.1) mmol/L Chloride 107 (96-108) mmol/L Carbon Dioxide 26 (22-29) mmol/L Anion Gap 13 (12-20) BUN 17 H (9-16) mg/dL Creatinine 0.87 (0.5-1.4) mg/dL Estim Creat Clear Calc 139.7 Estimated GFR > 60 Random Glucose 90 (60-115) mg/dL Calcium 9.7 (8.4-10.2) mg/dL Total Bilirubin 1.1 H (0.0-1.0) mg/dL AST 20 (5-37) U/L ALT 13 (0-40) U/L Alkaline Phosphatase 75 (39-117) U/L Total Protein 7.4 (6.5-8.0) g/dL Albumin 4.8 (3.5-5.0) g/dL Lipase 19 (8-78) U/L Tests considered The following testing was considered but not selected: CT of abdomen considered but exam soft, no WBC elevation, normal HCT Discharge Plan Discharge Clinical Impression: Gastritis, Constipation Patient Disposition: Home, Self-Care Instructions: Gastritis (ED), Constipation (ED) Prescriptions: New pantoprazole [Protonix] 40 mg tablet,delayed release (DR/EC) 40 mg PO DAILY Qty: 20 0RF No Action pantoprazole [Protonix] 40 mg tablet,delayed release (DR/EC) 40 mg PO DAILY Qty: 30 0RF sucralfate 1 gram tablet 1 g PO TID Qty: 90 0RF nitrofurantoin monohyd/m-cryst [Macrobid] 100 mg capsule 100 mg PO Q12H 7 Days Qty: 14 0RF Rx Instructions: must administer with a meal/food pantoprazole [Protonix] 40 mg tablet,delayed release (DR/EC) 40 mg PO DAILY Qty: 30 0RF sucralfate [Carafate] 1 gram tablet 1 g PO BID Qty: 60 0RF benzocaine 10 % suspension for reconstitution 15 ml mucous membrane QID PRN (Reason: mouth pain) Qty: 60 0RF Rx Instructions: swish and spit penicillin V potassium 500 mg tablet 500 mg PO BID Qty: 10 0RF cephalexin 500 mg capsule 500 mg PO QID 7 Days Qty: 28 0RF doxycycline hyclate 100 mg tablet 100 mg PO BID 7 Days Qty: 14 0RF lidocaine [DermacinRx Lidocan] 5 % adhesive patch,medicated 1 patch topical DAILY Qty: 30 0RF Rx Instructions: leave on most painful area for up to 12 hrs acetaminophen [Tylenol Extra Strength] 500 mg tablet 500 mg PO Q6H PRN (Reason: pain) Qty: 30 0RF Referrals: Physician,None [Primary Care Provider] - 5 days Print Language: Guyanese
[2024-06-19 00:20] VITALS: BP 102/64; PULSE 54; RESP 16; TEMP 36.6; O2SAT 98
[2024-06-19 00:25] VITALS: BP 102/64; PULSE 54; RESP 16; TEMP 36.6; O2SAT 98
== END 2024-06-19 00:25 | disposition home or self-care (01) ==
PROVIDERS: Emergency Provider Emergency Medicine
DX: K29.70 Gastritis, unspecified, without bleeding (principal); K59.00 Constipation, unspecified; R10.13 Epigastric pain
CPT/HCPCS: 36415; 80053; 83690; 85025; 96374; 99284; J2470

== ENCOUNTER 2025-01-28 09:33 | Emergency (ER) | payer SELFPAY ==
--- NOTE | ~2025-01-28 | XR_ITS ---
EXAMINATION: XR CHEST CLINICAL INFORMATION: cough COMPARISON: 09/30/2022. TECHNIQUE: 2 views of the chest were obtained. FINDINGS: The cardiac, hilar, and mediastinal contours are normal. The lungs are clear bilaterally. There is no pneumothorax or pleural effusion. There is no focal osseous or soft tissue abnormality. XR/XR chest 2V IMPRESSION: Normal chest. Electronically signed by: Dieudonne Sprague MD 01/28/2025 10:10 AM EDT
[2025-01-28 09:37] VITALS: BP 108/67; PULSE 81; RESP 20; TEMP 36.8; O2SAT 97; BMI 24.2
--- NOTE | 2025-01-28 11:46 | ED.URI ---
HPI - URI/Sore Throat General Chief Complaint: Upper Respiratory Symptoms Stated Complaint: Body Aches Vomiting Time Seen by Provider: 01/28/25 11:44 Source: patient and RN notes reviewed Mode of arrival: ambulatory Limitations: no limitations History of Present Illness ED Provider: Diana Horn PA-C HPI Narrative: This is a 24-year-old male, with a history of peptic ulcer disease, who presents emergency department with concerns for headache, body aches, sore throat and cough which started last night. Patient reports that since yesterday he has noticed that he has had bilateral leg achiness, headache, dry cough, sore throat. He states that he had 2 episodes of vomiting last night. He took NyQuil for her symptoms which provided him with some relief. No recent illness. 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 No recent tick bites. He reports that the nausea has since resolved. Denies taking any Tylenol or Motrin this morning. No diarrhea or constipation. No urinary symptoms. No other complaints or concerns at this time. MD elicited complaint: fever, cough and sore throat Consistency: constant Severity: moderate Exacerbating factors: nothing Relieving factors: OTC cold medicine Associated symptoms: headache, sore throat, cough, nausea and vomiting Treatments prior to arrival: none Related Data Previous Rx's ?Medication ?Instructions ?Recorded pantoprazole 40 mg tablet,delayed 40 mg PO DAILY #30 tabs 12/19/20 release (Protonix) sucralfate 1 gram tablet 1 g PO TID #90 tabs 12/19/20 nitrofurantoin 100 mg PO Q12H 7 days #14 caps 02/28/21 monohydrate/macrocrystals 100 mg capsule (Macrobid) pantoprazole 40 mg tablet,delayed 40 mg PO DAILY #30 tabs 06/23/21 release (Protonix) sucralfate 1 gram tablet (Carafate) 1 g PO BID #60 tabs 06/23/21 penicillin V potassium 500 mg 500 mg PO BID #10 tabs 09/16/22 tablet benzocaine 10 % oral rinse 15 ml mucous membrane QID PRN 09/30/22 suspension mouth pain #60 mL cephalexin 500 mg capsule 500 mg PO QID 7 days #28 caps 08/28/23 doxycycline hyclate 100 mg tablet 100 mg PO BID 7 days #14 tabs 08/28/23 acetaminophen 500 mg tablet 500 mg PO Q6H PRN pain #30 tabs 09/30/23 (Tylenol Extra Strength) lidocaine 5 % topical patch 1 patch topical DAILY #30 ea 09/30/23 (DermacinRx Lidocan) pantoprazole 40 mg tablet,delayed 40 mg PO DAILY #20 tabs 06/19/24 release (Protonix) acetaminophen 500 mg tablet 1,000 mg (2 x 500 mg) PO Q8H PRN 01/28/25 (Tylenol Extra Strength) pain #30 tabs ibuprofen 600 mg tablet 600 mg PO Q6H PRN pain #30 tabs 01/28/25 Allergies Allergy/AdvReac Type Severity Reaction Status Date / Time No Known Allergies Allergy Verified 01/28/25 09:40 [No Known Allergies*] Review of Systems Review of Systems: Yes all other systems are reviewed and are negative Constitutional: Constitutional: Reports as per [facility] Past Medical History Medical History Peptic ulcer Social History Social History Alcohol intake: never Smoked in Last 30 Days: No Substance Use Type: Marijuana Advance Directives: No Advance Directives Information Provided: Yes Do you have a plan to hurt others: No Plan Physical Exam Vital Signs: Vital Signs: Last Vital Signs Temp 97.8 F 01/28/25 12:07 Pulse 67 01/28/25 13:55 Resp 16 01/28/25 13:55 BP 108/68 01/28/25 13:55 Pulse Ox 97 01/28/25 13:55 O2 Del Method Room Air 01/28/25 13:55 BMI result Body Mass Index 24.2 Const: General: cooperative, comfortable and no acute distress Orientation/consciousness: patient oriented x3 Limitations: no limitations HEENT: Other: Oral posterior pharynx is mildly erythematous, no tonsillar hypertrophy or exudates. Uvula is midline. Speaking in full sentences under no acute distress. No trismus, drooling, or dysphonia. Head: Yes normal to inspection, Yes normocephalic and Yes atraumatic Ears: hearing grossly normal bilaterally and TM's normal bilaterally General nose exam: Normal external nose present Face and sinus: Yes normal facial exam Mouth: Normal oral and palatal mucosa present, oropharynx normal and moist mucous membranes Throat: Yes posterior oropharynx normal Eyes: General: appearance normal, both eyes and all related structures Eyelids: Yes eyelids normal Conjunctivae: conjunctivae normal Sclerae: sclerae normal Pupils: Equal, round and reactive pupils present EOM: EOMs intact bilaterally Neck: Neck: Yes normal visual inspection, Yes full ROM and Yes no lymphadenopathy Lymphatic: no lymphadenopathy noted Chest: Chest palpation & inspection: normal inspection of the chest Resp: Effort & Inspection: normal respiratory effort and able to speak in complete sentences Auscultation: clear to auscultation bilaterally, no crackles, no rales, no rhonchi and no wheezes Cardio: Rate: regular rate Rhythm: regular rhythm Heart sounds: S1 normal heart sound present and S2 normal heart sound present GI: Other: Abdomen is soft, nontender, nondistended Inspection: Yes normal to inspection Skin: General skin exam: no rashes or lesions noted Trauma: no lacerations or abrasions Wounds: no wounds Neuro: General: patient oriented x3 and moves all extremities Cranial nerves: Yes Equal, round and reactive pupils present Extrem: Other: No lower extremity swelling. Calf tenderness. General: Yes normal to inspection Right upper extremity: normal to inspection Left upper extremity: normal to inspection Right lower extremity: normal to inspection Left lower extremity: normal to inspection Medications Administered Generic Name Dose Route Start Last Admin Trade Name Freq PRN Reason Stop Dose Admin Lactated Ringer's 1,000 mls @ 999 mls/hr 01/28/25 14:10 01/28/25 14:14 Lr IV 01/28/25 15:10 999 mls/hr .Q1H1M ONE Administration Discontinued Medications Generic Name Dose Route Start Last Admin Trade Name Freq PRN Reason Stop Dose Admin Acetaminophen 1,000 mg in 100 mls @ 400 mls/hr 01/28/25 11:54 01/28/25 13:00 Ofirmev IV 01/28/25 12:08 Infused ONCE ONE Infusion Lactated Ringer's 1,000 mls @ 999 mls/hr 01/28/25 11:56 01/28/25 13:52 Lr IV 01/28/25 12:56 Infused .Q1H1M ONE Infusion Ketorolac Tromethamine 15 mg 01/28/25 13:47 01/28/25 13:54 Ketorolac Tromethamine 15 Mg/Ml Vial IVPUSH 01/28/25 13:48 15 mg ONCE ONE Administration Medical Decision Making Medical Decision Making [facility] Narrative: This is a 24-year-old male who presents emergency department with concerns for headache, bilateral leg pain, sore throat, cough. On arrival, vital signs within normal limits. He is speaking in full sentences under no acute distress. Oropharynx is mildly erythematous, TMs unremarkable. Abdomen is soft and nontender. He did have 2 episodes of vomiting this morning. No urinary symptoms. Differential diagnoses include flu, COVID, RSV, rhabdomyolysis - unlikely. Viral swabs were collected, no flu, COVID, RSV, strep is still pending. Chest x-ray was obtained prior to my evaluation, unremarkable. Been negative viral swabs, with bilateral leg pain, as well as nausea and vomiting, will obtain labs to rule out any electrolyte derangement. We will continue to closely monitor, will medicate with IV fluids and IV Tylenol. 1346 - labs returned, no leukocytosis, stable H&H, chemistry with no significant electrolyte derangement, slight hyperglycemia at 116 although this is nonfasting, liver transaminases within normal limits. He tested negative for COVID, flu, RSV, and strep throat. I re-evaluated, patient, he is feeling improved however still not feeling 100%, will order 1 time dose of Toradol, and 2 L of fluids, awaiting UA. We will also order full respiratory panel 1452 - patient feeling much better, overall workup today was reassuring. He is well-appearing, vital signs within normal limits. Symptoms likely viral in nature. Given strict return precautions. Patient understands and agrees with plan. Patient stable for discharge. Differential Diagnosis Differential Diagnoses: The differential diagnosis associated with the presentation includes See above Admission/Observation Consideration of admission/observation: Escalation of care including admission/observation considered Lab Data [facility] Lab Attestation statement: I reviewed the patient's lab results. See MDM and course 01/28/25 12:33 01/28/25 12:33 Labs: Lab Results 01/28/25 01/28/25 01/28/25 Range/Units 10:46 12:33 12:54 WBC 5.3 (4.8-10.8) X10*3/uL RBC 5.22 (4.60-5.80) X10*6/uL Hgb 16.1 (14.0-18.0) g/dl Hct 44.5 (42.0-52.0) % MCV 85.2 (80.0-98.0) fL MCH 30.8 (27.0-33.0) pg MCHC 36.2 H (31.0-36.0) g/dl RDW 12.5 (11.0-16.0) % Plt Count 212 (160-400) X10*3/uL MPV 9.5 (9.4-12.4) fL Immature Gran % (Auto) 0.2 (0.0-0.4) % Neut % (Auto) 67.1 (45-73) % Lymph % (Auto) 17.5 L (20-40) % [place] % (Auto) 13.5 H (2-11) % Eos % (Auto) 1.1 (0-4) % Baso % (Auto) 0.6 (0-2) % Lymph # (Auto) 0.9 L (1.2-4.9) X10*3/uL [place] # (Auto) 0.7 (0.1-1.2) X10*3/uL Eos # (Auto) 0.1 (0.0-0.4) X10*3/uL Baso # (Auto) 0.0 (0.0-0.2) X10*3/uL Abs Immat Gran (auto) 0.01 (0.00-0.03) X10*3/uL Absolute Neuts (auto) 3.6 (2.0-8.3) x10*3/uL Absolute Nucleated RBC 0.000 (0.0-0.012) X10*3/uL Nucleated RBC % (auto) 0.0 (0.0-0.2) /100WBC Sodium 142 (135-145) mmol/L Potassium 3.7 (3.3-5.1) mmol/L Chloride 108 (96-108) mmol/L Carbon Dioxide 25 (22-29) mmol/L Anion Gap 13 (12-20) BUN 10 (9-16) mg/dL Creatinine 0.87 (0.5-1.4) mg/dL Estim Creat Clear Calc 147.9 Estimated GFR > 60 Random Glucose 116 H (60-115) mg/dL Calcium 9.6 (8.4-10.2) mg/dL Magnesium 2.1 (1.6-2.6) mg/dL Total Bilirubin 0.8 (0.0-1.0) mg/dL Direct Bilirubin 0.3 (0.0-0.5) mg/dL AST 22 (5-37) U/L ALT 28 (0-40) U/L Alkaline Phosphatase 91 (39-117) U/L Total Creatine Kinase 66 (38-174) U/L Total Protein 7.1 (6.5-8.0) g/dL Albumin 4.6 (3.5-5.0) g/dL Lipase 12 (8-78) U/L Urine Color Urine Appearance Urine pH (5.0-9.0) Ur Specific [place] (1.005-1.025) Urine Protein (Neg-Trace) mg/dL Urine Glucose (UA) (Negative) mg/dL Urine Ketones (Negative) mg/dL Urine Blood (Negative) Urine Nitrite (Negative) Ur Leukocyte Esterase (Negative) Influenza Type A (PCR) NEGATIVE (Negative) Influenza Type B (PCR) NEGATIVE (Negative) RSV RNA Qual (PCR) NEGATIVE (Negative) SARS-CoV-2 RNA (RT-PCR) NEGATIVE (Negative) S. pyogenes GrpA FAUSTINO Invalid Negative (Negative) 01/28/25 Range/Units 13:58 WBC (4.8-10.8) X10*3/uL RBC (4.60-5.80) X10*6/uL Hgb (14.0-18.0) g/dl Hct (42.0-52.0) % MCV (80.0-98.0) fL MCH (27.0-33.0) pg MCHC (31.0-36.0) g/dl RDW (11.0-16.0) % Plt Count (160-400) X10*3/uL MPV (9.4-12.4) fL Immature Gran % (Auto) (0.0-0.4) % Neut % (Auto) (45-73) % Lymph % (Auto) (20-40) % [place] % (Auto) (2-11) % Eos % (Auto) (0-4) % Baso % (Auto) (0-2) % Lymph # (Auto) (1.2-4.9) X10*3/uL [place] # (Auto) (0.1-1.2) X10*3/uL Eos # (Auto) (0.0-0.4) X10*3/uL Baso # (Auto) (0.0-0.2) X10*3/uL Abs Immat Gran (auto) (0.00-0.03) X10*3/uL Absolute Neuts (auto) (2.0-8.3) x10*3/uL Absolute Nucleated RBC (0.0-0.012) X10*3/uL Nucleated RBC % (auto) (0.0-0.2) /100WBC Sodium (135-145) mmol/L Potassium (3.3-5.1) mmol/L Chloride (96-108) mmol/L Carbon Dioxide (22-29) mmol/L Anion Gap (12-20) BUN (9-16) mg/dL Creatinine (0.5-1.4) mg/dL Estim Creat Clear Calc Estimated GFR Random Glucose (60-115) mg/dL Calcium (8.4-10.2) mg/dL Magnesium (1.6-2.6) mg/dL Total Bilirubin (0.0-1.0) mg/dL Direct Bilirubin (0.0-0.5) mg/dL AST (5-37) U/L ALT (0-40) U/L Alkaline Phosphatase (39-117) U/L Total Creatine Kinase (38-174) U/L Total Protein (6.5-8.0) g/dL Albumin (3.5-5.0) g/dL Lipase (8-78) U/L Urine Color Yellow Urine Appearance Cloudy Urine pH 8.0 (5.0-9.0) Ur Specific [place] <= 1.005 (1.005-1.025) Urine Protein Negative (Neg-Trace) mg/dL Urine Glucose (UA) Negative (Negative) mg/dL Urine Ketones Negative (Negative) mg/dL Urine Blood Negative (Negative) Urine Nitrite Negative (Negative) Ur Leukocyte Esterase Negative (Negative) Influenza Type A (PCR) (Negative) Influenza Type B (PCR) (Negative) RSV RNA Qual (PCR) (Negative) SARS-CoV-2 RNA (RT-PCR) (Negative) S. pyogenes GrpA FAUSTINO (Negative) Radiology Impression Discussion of test interpretation with radiology: I have reviewed the radiologist's reading. Radiologist Impression: [id number] [place] [address] XRay Report Signed Patient: Valentino Caldwell MR#: [id number] : 2000 Acct:[id number] Age/Sex: 24 / M ADM Date: 01/28/25 Loc: .ED Attending Dr: Ordering Physician: Generic ED Physician Date of Service: 01/28/25 Procedure(s): XR chest 2V Accession Number(s): [id number] cc: Generic ED Physician; Physician,None ~ EXAMINATION: XR CHEST CLINICAL INFORMATION: cough COMPARISON: 09/30/2022. TECHNIQUE: 2 views of the chest were obtained. FINDINGS: The cardiac, hilar, and mediastinal contours are normal. The lungs are clear bilaterally. There is no pneumothorax or pleural effusion. There is no focal osseous or soft tissue abnormality. XR/XR chest 2V IMPRESSION: Normal chest. Electronically signed by: Dieudonne Sprague MD 01/28/2025 10:10 AM EDT RP Dictated By: Dieudonne Sprague MD Discharge Plan Discharge Clinical Impression: Viral infection Patient Disposition: Home, Self-Care Instructions: Viral Syndrome (ED) Additional Instructions: You were seen in the emergency department today. You tested negative for COVID, flu, RSV and strep throat. Your blood work was reassuring. Your urine does not appear to be infected. We will also tested you for other viruses, these take several days for them to return. We also tested you for tick-borne illnesses, we will call you if any of these are positive. You may also check your patient portal. You likely have a virus that is causing you to have the symptoms. Please drink plenty of fluids get plenty of rest. Alternate between ibuprofen and or Tylenol as needed for pain and symptoms. Take ibuprofen 600 mg every 6 hours with food, 2 hours later take Tylenol 1000 mg every 8 hours. If any new or worsening symptoms occur including but not limited to severe chest pain, shortness of breath, worsening pain, please seek emergent care. Prescriptions: New ibuprofen 600 mg tablet 600 mg PO Q6H PRN (Reason: pain) Qty: 30 0RF acetaminophen [Tylenol Extra Strength] 500 mg tablet 1,000 mg PO Q8H PRN (Reason: pain) Qty: 30 0RF No Action pantoprazole [Protonix] 40 mg tablet,delayed release (DR/EC) 40 mg PO DAILY Qty: 30 0RF sucralfate 1 gram tablet 1 g PO TID Qty: 90 0RF nitrofurantoin monohyd/m-cryst [Macrobid] 100 mg capsule 100 mg PO Q12H 7 Days Qty: 14 0RF Rx Instructions: must administer with a meal/food pantoprazole [Protonix] 40 mg tablet,delayed release (DR/EC) 40 mg PO DAILY Qty: 30 0RF sucralfate [Carafate] 1 gram tablet 1 g PO BID Qty: 60 0RF benzocaine 10 % suspension for reconstitution 15 ml mucous membrane QID PRN (Reason: mouth pain) Qty: 60 0RF Rx Instructions: swish and spit penicillin V potassium 500 mg tablet 500 mg PO BID Qty: 10 0RF cephalexin 500 mg capsule 500 mg PO QID 7 Days Qty: 28 0RF doxycycline hyclate 100 mg tablet 100 mg PO BID 7 Days Qty: 14 0RF lidocaine [DermacinRx Lidocan] 5 % adhesive patch,medicated 1 patch topical DAILY Qty: 30 0RF Rx Instructions: leave on most painful area for up to 12 hrs acetaminophen [Tylenol Extra Strength] 500 mg tablet 500 mg PO Q6H PRN (Reason: pain) Qty: 30 0RF pantoprazole [Protonix] 40 mg tablet,delayed release (DR/EC) 40 mg PO DAILY Qty: 20 0RF Stand Alone Forms: Work/School Release Print Language: Greek
[2025-01-28 12:07] VITALS: BP 110/63; PULSE 71; RESP 16; TEMP 36.6; O2SAT 98
[2025-01-28 12:16] LABS: Influenza A PCR NEGATIVE (Negative); Influenza B PCR NEGATIVE (Negative); Resp Syncy Virus RNA Qual PCR NEGATIVE (Negative); SARS COV2 PCR INHOUSE NEGATIVE (Negative)
[2025-01-28] MEDS: Lactated Ringers 1,000 ML 999 ML IV ×2 (12:34→14:14)
[2025-01-28 12:36] LABS: IDNOW Serial# 58CA691E; Strep A Nucleic Acid Invalid (Negative)
[2025-01-28] MEDS: Acetaminophen 1,000 MG/100 ML PIGGYBACK 400 MG IV (12:38)
[2025-01-28 12:47] LABS: MANUAL DIFF FLAG NO
--- NOTE | 2025-01-28 12:49 | PC.NURSE ---
Patient is a 24-year-old male, with a history of peptic ulcer disease, who presents emergency department with concerns for headache, body aches, sore throat and cough which started last night. Patient reports that since yesterday he has noticed that he has had bilateral leg achiness, headache, dry cough, sore throat and vomiting. Patient well appearing. Afebrile. Lungs clear bilat. Respirations even and non-labored. Abdomen soft, non-tender with positive bowel sound. No LE edema noted
--- OUTSIDE RECORDS SUMMARY | 2025-01-28 12:49 | XMS_ITS | Clinical Summary ---
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 penicillin v potassium (Veetid) 500 MG tablet TAKE 1 TAB ORALLY 2 TIMES A DAY 3 Active pantoprazole (ProtoNix) 40 MG EC tabletIndicatio ns:Epigastric pain Take 1 capsule 30min before breakfast 90 tablet 1 3 Active mirtazapine (Remeron) 7.5 MG tabletIndicatio ns:Anxiety Take 1 tablet (7.5 mg) by mouth at bedtime. 30 tablet 4 Active hydrOXYzine HCl (Atarax) 25 MG tabletIndicatio ns:Anxiety 1 to 2 tabs at bedtime 60 tablet 3 4 Active cephalexin (Keflex) 500 MG capsule Take 500 mg by mouth 4 times daily. 3 Active doxycycline (Vibra-Tabs) 100 MG tablet Take 100 mg by mouth 2 times daily. 3 Active acetaminophen (Tylenol) 500 MG tablet Take 1 tablet (500 mg) by mouth every 6 (six) hours if needed for mild pain for up to 20 doses. 20 tablet 4 Active ibuprofen 600 MG tablet Take 1 tablet (600 mg) by mouth every 6 (six) hours if needed for mild pain for up to 20 doses. 20 tablet 4 Active Active Problems Problem Noted Date Diagnosed Date Impacted third molar tooth 03/08/2024 Severe dental caries 03/08/2024 Anxiety 09/17/2023 Assessment & Plan (09/17/2023 11:50 AM EST): ?? During IBH Consult Valentino presenting??with??excessive worry/anxiety, difficulty controlling worry, restless/keyed up/On edge, easily fatigued, difficulty concentrating/Mind going blank , irritability, muscle tension, and sleep disturbance difficulty falling asleep, difficulty staying asleep , and restless, unsatisfying sleep; 4-5 days.? Valentino reported that his anxiety began without trigger 4-5 days ago. He reports significant difficulty sleeping and feeling of panic when he wakes up at night. He endorsed shaking, difficulty speaking, vomiting, and feelings of emotional numbness. He does not have any current effective coping mechanisms but has utilized body breathing, meditation, and music to calm in the past. He has an appointment with his previous therapist scheduled and will inquire regarding psychiatry when he speaks to him. ?? PROTECTIVE FACTORS social/community supports The patient receives support from Valentino Caldwell's parents, extended family, and friends . and high family cohesion ? Interventions provided: [Check all that apply] Supportive counseling Validation of emotions Motivational Interviewing Emotion Regulation Breathing/Grounding Strategies ?? Measurement Tools [Check all that apply and include scores] PATRICIA-7- score of 19 indicating significant impact on social and occupational functioning ? STAGES OF CHANGE?? COMPLETATION ?? PLAN: (check all that apply) New/Additional Services needed PCP management , Behavioral Health Integration Plan Patient Self Plan Patient to utilize skills provided in intervention , Patient to reach out to [facility] team as needed, Comply with medication , and Patient to engage in OP therapy ?Rule Out Diagnoses Generalized Anxiety Disorder/ Panic attacks ?? Behavioral Health Diagnoses At this time Valentino meets criteria for Visit Diagnoses: Problem List Items Addressed This Visit ? Other ?? Anxiety ? Periumbilical abdominal pain 09/22/2019 Gastrointestinal hemorrhage 09/22/2019 Hematemesis with nausea 09/22/2019 Change in stool 05/31/2018 10/07/2023 Functional dyspepsia 04/19/2018 Chronic superficial gastritis without bleeding 0 04/16/2018 Peptic ulcer disease 01/15/2018 10/07/2023 Lower abdominal pain 01/01/2018 Diarrhea 01/01/2018 10/07/2023 Weight loss 01/01/2018 10/07/2023 Immunizations Immunization Administration Dates Next Due DTP 03/17/2001,01/13/2001,2000 DTaP 02/05/2005,03/16/2002,03/17/2001 ,01/13/2001 DTaP, 5 pertussis antigens 2000 HPV 9-Valent 12/05/2015 Hep A, ped/adol, 2 dose 12/05/2015 Hep B, Adolescent or Pediatric 06/17/2001,2000,2000 Hib (HbOC) 12/15/2001,03/17/2001,01/13/2001 ,2000 IPV 02/05/2005,10/31/2003,01/13/2001 ,2000 Influenza, IIV3, injectable 10/05/2012 MMR 04/22/2007,02/05/2005,12/15/2001 Meningococcal MCV4P ACYW-135 12/05/2015,10/05/19 13 Pfizer Covid-19 Vaccine 12+ 2021, 1 Pneumococcal Conjugate PCV 13 2000 Pneumococcal Conjugate PCV 7 09/15/2001,03/17/20,01/13/2001 Tdap 10/05/2012 Varicella 10/07/2012,09/15/2001 Social History Tobacco Use Types Packs/Day Years Used Date Smoking Tobacco: Never Smokeless Tobacco: Never Tobacco Cessation:Counseling Given: Not Answered Alcohol Use Standard Drinks/Week Comments Yes 0 (1 standard drink = 0.6 oz pur e alcohol) Housing Stability Answer Date Recorded What is your housing situation today? I have luismirna ayers 07/07/[address] you li ve. Do you have problems with any of the following? None of the above 07/07/2023 Food Insecurity Answer Date Recorded Within the past 12 months, y ou worried that your food would run out before you got money to buy more: Never True 07/07/2023 Within the past 12 months,th e food you bought just didn't last and you didn't have enough money to get more: Never True 01/2023 Transportation Answer Date Recorded In the past 12 months, has l ack of transportation kept you from medical appts, meetings, work or from getting things needed for daily living? No 07/07/2023 Utilities Answer Date Recorded In the past 12 months, has t he electric, gas, oil or water company threatened to shut off services in your home? No 07/07/2023 Sex and Gender Information Value Date Recorded Sex Assigned at Male 07/01/2022 10:29 AM EDT Legal Sex Male 10:29 AM EDT Gender Identity Choose not to disclose 10:29 AM EDT Sexual Orientation Choose not to disclose 2021 10:29 AM EDT Last Filed Vital Signs Vital Sign Reading Time Taken Comments Blood Pressure 120/80 03/08/2024 9:15 AM EDT Pulse 58 09/17/2023 10:08 AM EST Temperature 36.5 ??C (97.7 ??F) 09/17/2023 1 0:08 AM EST Respiratory Rate 17 09/17/2023 10:0 8 AM EST Oxygen Saturation 98% 09/17/2023 10: 08 AM EST Inhaled Oxygen Concentration - - Weight 69.3 kg (152 lb 12.8 oz) 024 10:08 AM EST Height 182.9 cm (6') 09/16/2023 4:58 PM EST Body Mass Index 20.72 09/16/2023 4:58 PM EST Plan of Treatment Health Maintenance Due Date Last Done Comments Depression Screening 2000 Disability Screening 2000 Alcohol/Substance Use Screening 2012 Family Planning (PISQ) 2015 HPV Vaccines (2 - 3-dose series) 01/02/2016 12/05/2015 Hepatitis A Vaccines (2 of 2 - 2-dose series) 06/05/2016 12/05/2015 Dental Prophylaxis 07/14/2016 01/11/2016 Dental Oral Exam 09/22/2021 03/21/2021, 01/11/2016 DTaP/Tdap/Td Vaccines (7 - Td or Tdap) 10/05/2022 10/05/2012, 02/05/2005, 03/16/2002, Additional history exists Dental X-Ray: Bitewings 10/13/2022 10/12/19, 03/21/2021, 01/11/2016 SDOH Screening 11/06/2023 11/05/2022 COVID-19 Vaccine ( season) 2024 2021, 08/23/2021 Influenza Vaccine (#1) 2024 10/05/2012 Tobacco Screening 03/08/2025 03/08/2024 Dental X-Ray: Full Mouth 02/10/2027 024, 03/21/2021, 01/11/2016 Zoster Vaccines (1 of 2) 2050 RSV Patients and Patients Aged 60 years or older (1 - 1-dose 75+ series) 2075 Hepatitis B Vaccines Completed 06/17/2001, 2000, 2000 Pneumococcal Vaccine: Pediatrics (0 to 5 Years) and At-Risk Patients (6 to 49) Years) Completed 09/15/2001, 03/17/2001, 01/13/2001, Additional history exists HIB Vaccines Completed 12/15/2001, 03/01, 01/13/2001, Additional history exists IPV Vaccines Completed 02/05/2005, 03/0 09/2003, 01/13/2001, Additional history exists Meningococcal Vaccine Aged Out 12/05/2015, 013 No longer eligible based on patient's age to complete this topic HIV Screening Completed 10/14/2022 Hepatitis C Screening Completed 10/14/2022 Meningococcal B Vaccine Aged Out No l onger eligible based on patient's age to complete this topic RSV under 20 months Aged Out No longe r eligible based on patient's age to complete this topic Rotavirus Vaccines Aged Out No longer eligible based on patient's age to complete this topic Procedures Procedure Name Priority Date/Time Associated Diagnosis Comments PANORAMIC RADIOGRAPHIC IMAGE Routine 02/10/2024 11:30 AM EDT Dental caries HEPATITIS C AB W/REFL TO HCV RNA, QN, PCR Routine 10/14/2022 1:56 PM EST Routine screening for STI (sexually transmitted infection) HIV 1/2 ANTIGEN/ANTIBODY, FOURTH GENERATION W/RFL Routine 10/14/2022 1:56 PM EST Routine screening for STI (sexually transmitted infection) BITEWING - SINGLE RADIOGRAPHIC IMAGE Routine 10/12/2021 12:00 AM EST PERIODIC ORAL EVALUATION - ESTABLISHED PATIENT Routine 03/21/2021 12:00 AM EDT PROPHYLAXIS - ADULT Routine 01/11/2016 1 2:00 AM EDT from Last 3 Months or Most Recently Relevant to Health Maintenance Results * Hepatitis C Antibody with Reflex to HCV, RNA, Quantitative, Real-Time PCR (10/14/2022 1:56 PM EST) Hepatitis C Antibody NON-REACT LENNY NON-REACT LENNY [facility] [employer] Index <0.02 <1.00 [facility] [employer] Comment: HCV antibody was non-reactive. There is no laboratory evidence of HCV infection. In most cases, no further action is required. However, if recent HCV exposure is suspected, a test for HCV RNA (test code 69460) is suggested. For additional information please refer to http://education.[employer]/faq/DEI68o9 (This link is being provided for informational/ educational purposes only.) Blood Venous blood specimen / Unknown 10/14/2022 1:56 PM EST 10/14/2022 1:57 PM EST Narrative [facility] - 10/15/2022 12:33 PM EST FASTING:NO FASTING: NO [facility] LAB BLOOD ORDERABLES Final Resul t [facility] [address], [place] [address] [facility] [employer] [address] [facility], ([address]) [place] [address] * HIV-1/2 Antigen and Antibodies, Fourth Generation, with Reflexes (10/14/2022 1:56 PM EST) Pathologist [facility] HIV Antigen/Antibody, 4th Generation NON-REAC TIVE NON-REAC TIVE [facility] [employer] Comment: HIV-1 antigen and HIV-1/HIV-2 antibodies were not detected. There is no laboratory evidence of HIV infection. PLEASE NOTE: This information has been disclosed to you from records whose confidentiality may be protected by state law. ??If your state requires such protection, then the state law prohibits you from making any further disclosure of the information without the specific written consent of the person to whom it pertains, or as otherwise permitted by law. A general authorization for the release of medical or other information is NOT sufficient for this purpose. ?? For additional information please refer to http://education.[employer]/faq/BZA513 (This link is being provided for informational/ educational purposes only.) The performance of this assay has not been clinically validated in patients less than 2 years old. Blood Venous blood specimen / Unknown 10/14/2022 1:56 PM EST 10/14/2022 1:57 PM EST Narrative [facility] - 10/15/2022 12:33 PM EST FASTING:NO FASTING: NO [facility] LAB BLOOD ORDERABLES Final Resul t [facility] [address], [place] [address] [facility] [address] [facility], ([address]) [place] [address] from Last 3 Months or Most Recently Relevant to Health Maintenance Insurance [facility] [address] C3 HSN FULL DENTAL-[facility] MED[facility] STAND ADULT
[2025-01-28 12:54] LABS: Basophils Percent Auto 0.6 % (0-2); Eosinophils Absolute Auto 0.1 X10*3/uL (0.0-0.4); Eosinophils Percent Auto 1.1 % (0-4); Hematocrit 44.5 % (42.0-52.0); Hemoglobin 16.1 g/dl (14.0-18.0); Imm Gran Abs Auto 0.01 X10*3/uL (0.00-0.03); Imm Gran Pct Auto 0.2 % (0.0-0.4); Lymphocytes Absolute Auto 0.9 X10*3/uL (1.2-4.9); Lymphocytes Percent Auto 17.5 % (20-40); Mean Corpuscular HGB Conc 36.2 g/dl (31.0-36.0); Mean Corpuscular Hemoglobin 30.8 pg (27.0-33.0); Mean Corpuscular Volume 85.2 fL (80.0-98.0); Mean Platelet Volume 9.5 fL (9.4-12.4); Monocytes Absolute Auto 0.7 X10*3/uL (0.1-1.2); Monocytes Percent Auto 13.5 % (2-11); Neutrophils Absolute Auto 3.6 x10*3/uL (2.0-8.3); Neutrophils Percent Auto 67.1 % (45-73); Platelet Count 212 X10*3/uL (160-400); Red Blood Count 5.22 X10*6/uL (4.60-5.80); Red Cell Distribution Width 12.5 % (11.0-16.0); White Blood Count 5.3 X10*3/uL (4.8-10.8)
[2025-01-28 13:05] LABS: IDNOW Serial# 55D5AD1C; Strep A Nucleic Acid Negative (Negative)
[2025-01-28 13:10] LABS: Alanine Aminotransferase 28 U/L (0-40); Albumin Level 4.6 g/dL (3.5-5.0); Alkaline Phosphatase 91 U/L (39-117); Anion Gap 13 (12-20); Aspartate Amino Transferase 22 U/L (5-37); Bilirubin Direct 0.3 mg/dL (0.0-0.5); Bilirubin Total 0.8 mg/dL (0.0-1.0); Blood Urea Nitrogen 10 mg/dL (9-16); Calcium 9.6 mg/dL (8.4-10.2); Carbon Dioxide 25 mmol/L (22-29); Chloride 108 mmol/L (96-108); Creatinine Clr Calc Pharmacy 147.9; Estimated Glomerular Filt Rate > 60; Glucose Random 116 mg/dL (60-115); Lipase 12 U/L (8-78); Magnesium 2.1 mg/dL (1.6-2.6); Potassium 3.7 mmol/L (3.3-5.1); Sodium 142 mmol/L (135-145); Total Protein 7.1 g/dL (6.5-8.0)
[2025-01-28] MEDS: Ketorolac Tromethamine 15 MG/ML VIAL IVPUSH (13:54)
[2025-01-28 13:55] VITALS: BP 108/68; PULSE 67; RESP 16; O2SAT 97
[2025-01-28 14:05] LABS: Appearance Urine Cloudy; Color Urine Yellow; Glucose Urine UA Negative (Negative); Leukocyte Esterase Urine Negative (Negative); Nitrite Urine Negative (Negative); Specific Gravity - Urine <= 1.005 (1.005-1.025); Urine Blood Negative (Negative); Urine Ketones Negative (Negative); Urine Protein Negative (Neg-Trace)
[2025-01-28 15:10] VITALS: BP 108/68; PULSE 67; RESP 16; TEMP 36.7; O2SAT 97
[2025-01-28 15:55] LABS: Adenovirus PCR Not Detected (Not Detect.); Bordetella parapertussis PCR Not Detected (Not Detect.); Bordetella pertussis PCR Not Detected (Not Detect.); Chlamydia pneumoniae PCR Not Detected (Not Detect.); Coronavirus 229E PCR Not Detected (Not Detect.); Coronavirus HKU1 PCR Not Detected (Not Detect.); Coronavirus NL63 PCR Not Detected (Not Detect.); Coronavirus OC43 PCR Not Detected (Not Detect.); Human metapneumovirus PCR Not Detected (Not Detect.); Influenza A PCR Not Detected (Not Detect.); Influenza B PCR Not Detected (Not Detect.); Mycoplasma pneumoniae PCR Not Detected (Not Detect.); Parainfluenza 1 PCR Not Detected (Not Detect.); Parainfluenza 2 PCR Not Detected (Not Detect.); Parainfluenza 3 PCR Not Detected (Not Detect.); Parainfluenza 4 PCR Not Detected (Not Detect.); RSV PCR Not Detected (Not Detect.); Rhino/Enterovirus PCR Detected (Not Detect.)
[2025-01-28 16:18] LABS: Influenza A H1 PCR Not Detected (Not Detect.); Influenza A H1-2009 PCR Not Detected (Not Detect.); Influenza A H3 PCR Not Detected (Not Detect.); SARS-CoV-2 PCR Not Detected (Not Detect.)
[2025-01-29 05:58] LABS: Lyme Abs Screen <0.90 index
[2025-02-02 03:44] LABS: Babesia IgG <1:64 titer (<1:64); Babesia IgM <1:20 titer (<1:20)
[2025-02-02 13:04] LABS: A. Phagocytophilum Ab IgG <1:64 (<1:64); A. Phagocytophilum Ab IgM <1:20 (<1:20); E. Chaffeensis Ab IgG <1:64 (<1:64); E. Chaffeensis Ab IgM <1:20 (<1:20)
== END 2025-01-28 15:11 | disposition home or self-care (01) ==
PROVIDERS: Physician Assistant Medical; Emergency Provider Emergency Medicine Emergency Medical Services
DX: B34.9 Viral infection, unspecified (principal); J02.9 Acute pharyngitis, unspecified; R51.9 Headache, unspecified; Z03.818 Encounter for observation for suspected exposure to other biological agents ruled out
CPT/HCPCS: 0241U; 36415; 71046; 80048; 80076; 81003; 82550; 83690; 83735; 85025; 86617; 86618; 86666; 86753; 87633; 87651; 96361; 96374; 96375; 99284; 99285; J0131; J1885; J7120

== ENCOUNTER → 2025-01-28 09:41 | Outpatient (BNV) | payer SELFPAY | PROVIDERS: Visit Provider Radiology Diagnostic Radiology | DX: R05.9 Cough, unspecified (principal) | CPT/HCPCS: 71046 ==